=== PATIENT | female | born 1960 | race Caucasian/White ===

== ENCOUNTER → 2017-08-10 15:36 | Outpatient (CLI) | payer OTHER, SELFPAY ==
--- NOTE | 2017-08-10 15:52 | CT_ITS ---
CT head/brain wo con HISTORY: ITS.REASON: WEAKNESS RT. HAND; TINGLING ORDERING PHYSICIAN: Cedrick Almaguer PATIENT AGE: 57 years COMPARISON: None TECHNIQUE: Axial images obtained without contrast. Brain and bone windows reviewed. All CT scans at the facility use one or more dose reduction, viz: automated exposure control; ma/kV adjustment per patient size (including targeted exams where dose is matched to indication; i.e. head); or iterative reconstruction technique. FINDINGS: No midline shift, mass effect, intracranial hemorrhage, hydrocephalus, or extra-axial fluid collection is evident. The calvarium has an unremarkable appearance. No mastoid effusion. No sinus air-fluid levels.. IMPRESSION: Negative CT head without contrast. No acute finding
== END ==
PROVIDERS: PCP Internal Medicine; Visit Provider Internal Medicine
DX: R53.1 Weakness (principal); R20.2 Paresthesia of skin
CPT/HCPCS: 70450

== ENCOUNTER → 2017-10-17 12:04 | Outpatient (POV) | payer OTHER, SELFPAY | PROVIDERS: Family Provider Family Medicine; PCP Internal Medicine; Visit Provider Specialist | DX: R53.1 Weakness (principal); R20.2 Paresthesia of skin | CPT/HCPCS: 95886; 95909 ==

== ENCOUNTER → 2017-10-24 14:37 | Outpatient (CLI) | payer OTHER, SELFPAY ==
--- NOTE | 2017-10-24 14:46 | XR_ITS ---
XR shoulder RT min 2V HISTORY: ITS.REASON: PAIN ORDERING PHYSICIAN: Dyan Pennington MD PATIENT AGE: 57 years Comparison: None FINDINGS: No fracture or dislocation. No lytic or blastic change. There is normal mineralization. The joint spaces are well-preserved. No significant degenerative/arthritic changes. No erosive changes evident. IMPRESSION: Negative, no acute finding
== END ==
PROVIDERS: Family Provider Family Medicine; PCP Internal Medicine; Visit Provider Specialist
DX: S54.21XA Injury of radial nerve at forearm level, right arm, initial encounter (principal); G62.9 Polyneuropathy, unspecified; M25.511 Pain in right shoulder
CPT/HCPCS: 73030

== ENCOUNTER 2017-11-24 14:00 | Outpatient (RCR) | payer OTHER, SELFPAY | END 2017-11-24 14:01 | disposition home or self-care (01) | LOC: OT 14:00 | PROVIDERS: Family Provider Family Medicine; PCP Internal Medicine; Visit Provider Specialist | DX: S54.21XA Injury of radial nerve at forearm level, right arm, initial encounter (principal); M25.511 Pain in right shoulder; G62.9 Polyneuropathy, unspecified | CPT/HCPCS: 97110; 97140; 97166 ==

== ENCOUNTER → 2017-12-22 08:41 | Outpatient (CLI) | payer OTHER, SELFPAY ==
[2017-12-22 09:23] LABS: Basophils % 0.5 % (0.1-2.0); Eosinophils % 0.4 % (0.1-12.0); Hematocrit 54.4 % (37.0-47.0); Lymphocytes # 1.3 K/mm3 (0.7-4.5); Lymphocytes % 16.3 K/mm3 (10-50); Mean Corpuscular HGB Conc 31.3 g/dL (31.8-35.4); Mean Corpuscular Hemoglobin 30.2 pg (27.0-31.2); Mean Corpuscular Volume 96.5 fl (81-99); Monocytes # 0.3 K/mm3 (0.1-1.0); Neutrophils # 6.2 K/mm3 (1.8-7.8); Neutrophils % 78.8 % (37.0-80.0); Platelet Count 304 K/mm3 (142-424); Red Blood Count 5.64 M/mm3 (4.20-5.40); Red Cell Distribution Width 14.9 % (11.5-17.5); White Blood Count 7.9 K/mm3 (4.8-10.8)
[2017-12-22 11:10] LABS: Alanine Aminotransferase 18 U/L (12-78); Albumin Level 3.9 gm/dL (3.4-5.0); Alkaline Phosphatase 138 U/L (46-116); Anion Gap 12.5 mEq/L (5-15); Aspartate Amino Transferase 14 U/L (15-37); Bilirubin,Total 0.4 mg/dL (0.2-1.0); Blood Urea Nitrogen 6 mg/dL (7-18); Calcium 9.8 mg/dL (8.5-10.1); Carbon Dioxide 30 mmol/L (21.0-32.0); Chloride 103 mmol/L (98-107); Creatinine,Serum 0.68 mg/dL (0.55-1.02); Estimated Glomerular Filt Rate 89 ml/min (>60); GFR (African American) 107 ML/MIN (>60); Globulin 4.1 gm/dl (1.3-3.2); Glucose 147 mg/dL (74-106); Potassium 4.5 mmoL/L (3.5-5.1); Sodium 141 mmol/L (136-145); Thyroid Stimulating Hormone 0.28 uIU/ml (0.358-3.740)
[2017-12-23 10:04] LABS: Vitamin B12 475 pg/mL (232-1245)
[2017-12-23 10:05] LABS: Folate 10.5 ng/mL (>3.0)
== END ==
PROVIDERS: PCP Internal Medicine; Visit Provider Specialist
DX: S54.21XA Injury of radial nerve at forearm level, right arm, initial encounter (principal); M25.511 Pain in right shoulder; G62.9 Polyneuropathy, unspecified
CPT/HCPCS: 36415; 80053; 82607; 82746; 84443; 85025

== ENCOUNTER 2018-06-30 01:46 | Emergency (ER) | payer MEDICAID, SELFPAY ==
[2018-06-30 02:00] VITALS: BP 163/94; PULSE 71; RESP 18; TEMP 36.7; O2SAT 94; BMI 21.1
--- NOTE | 2018-06-30 02:33 | HMH.EDMCLR ---
ED Disposition Clinical Impression: Medical clearance for incarceration Disposition: Home, Self-Care Condition on Discharge: Good Instructions: General Health and Well-being (Alternative Therapy) Additional Instructions: see pcp for follow up Referrals: Provider,Referral, [Primary Care Provider] - - Critical Care Critical Care Time: No Attestation: On 06/30/18, the high probability of a clinically significant, sudden or life threatening deterioration of the following system(s) required my full and direct attention, intervention and personal management. The time I documented below is in addition to time spent performing reported procedures but includes the following listed in this critical care notation. Medical Decision Making - Medical Records Medical records reviewed: Yes: I reviewed the patient's medical records. - Kulwant Inquiry Pt receiving controlled substance: No Vital Signs: 06/30/18 02:00 Temperature 98.1 F Temperature Source Oral Pulse Rate [Right] 71 Respiratory Rate 18 Blood Pressure [Right Arm] 163/94 H Blood Pressure Mean [Right Arm] 117 Blood Pressure Source [Right Arm] Automatic Cuff Blood Pressure Position [Right Arm] Sitting 02 Sat by Pulse Oximetry 94 L Oxygen Delivery Method Room Air Medical Clearance HPI - General Chief complaint: Medical Clearance Stated complaint: Medical Clearance/Blood Draw Time Seen by Provider: 06/30/18 02:10 Mode of Arrival: Ambulatory Source of Information: Patient, Medical Record Limitations: No Limitations Description of Symptoms (Recalled from ER Triage Doc. by RN): Medical clearance - History of Present Illness HPI Narrative: no specific c/o MD complaint: medical clearance requested Onset (ago): hour(s) Reason for Medical Clearance: intoxication Place: home Alleged Intoxication: Yes Compliant with Home Medications: Yes Traumatic Symptoms: denies traumatic injury Associated Symptoms: denies other symptoms Treatments Prior to Arrival: none Home medications: Home Medications Medication Instructions Recorded Confirmed No Known Home Medications 10/24/17 10/24/17 Allergies/Adverse reactions: Allergies Allergy/AdvReac Type Severity Reaction Status Date / Time sulfamethoxazole Allergy Mild Unverified 12/26/17 15:40 [From BACTRIM] trimethoprim [From BACTRIM] Allergy Mild Unverified 12/26/17 15:40 [facility] History - Hepatitis A Screen Drug use history?: No High risk sexual behaviors?: No History of sexually transmitted infection?: No Currently employed?: No Childcare worker?: No Do you have indoor plumbing?: No Do you have electricity?: No Attestation statement:: This patient has been screened for Hepatitis A risk factors. 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 Housing: house Household Members: spouse - Psychiatric History Expresses thoughts of harming self/others: None Suicide Plan Description: No Plan Family Hx:: No significant family history ROS Obtained: Yes All systems reviewed & no additional complaints - Constitutional Constitutional: Denies fever(s) - Eyes Eyes: Denies change in vision - ENT Ears, Nose, Mouth, and Throat: Denies sore throat - Cardiovascular Cardiovascular: Denies chest pain - Respiratory Respiratory: No cough - Gastrointestinal Gastrointestingal: Denies: abdominal pain - Genitourinary Female Genitourinary: Denies hematuria - Musculoskeletal Musculoskeletal: Denies joint pain - Integumentary/Breasts Skin/Breast: Denies rash - Neurologic Neurologic: Denies abnormal g
--- NOTE | 2018-06-30 02:37 | ED_ITS ---
ED Disposition Clinical Impression: Medical clearance for incarceration Disposition: Home, Self-Care Condition on Discharge: Good Instructions: General Health and Well-being (Alternative Therapy) Additional Instructions: see pcp for follow up Referrals: Provider,Referral, [Primary Care Provider] - - Critical Care Critical Care Time: No Attestation: On 06/30/18, the high probability of a clinically significant, sudden or life threatening deterioration of the following system(s) required my full and direct attention, intervention and personal management. The time I documented below is in addition to time spent performing reported procedures but includes the following listed in this critical care notation. Medical Decision Making - Medical Records Medical records reviewed: Yes: I reviewed the patient's medical records. - Kulwant Inquiry Pt receiving controlled substance: No Vital Signs: 06/30/18 02:00 Temperature 98.1 F Temperature Source Oral Pulse Rate [Right] 71 Respiratory Rate 18 Blood Pressure [Right Arm] 163/94 H Blood Pressure Mean [Right Arm] 117 Blood Pressure Source [Right Arm] Automatic Cuff Blood Pressure Position [Right Arm] Sitting 02 Sat by Pulse Oximetry 94 L Oxygen Delivery Method Room Air Medical Clearance HPI - General Chief complaint: Medical Clearance Stated complaint: Medical Clearance/Blood Draw Time Seen by Provider: 06/30/18 02:10 Mode of Arrival: Ambulatory Source of Information: Patient, Medical Record Limitations: No Limitations Description of Symptoms (Recalled from ER Triage Doc. by RN): Medical clearance - History of Present Illness HPI Narrative: no specific c/o MD complaint: medical clearance requested Onset (ago): hour(s) Reason for Medical Clearance: intoxication Place: home Alleged Intoxication: Yes Compliant with Home Medications: Yes Traumatic Symptoms: denies traumatic injury Associated Symptoms: denies other symptoms Treatments Prior to Arrival: none Home medications: Home Medications Medication Instructions Recorded Confirmed No Known Home Medications 10/24/17 10/24/17 Allergies/Adverse reactions: Allergies Allergy/AdvReac Type Severity Reaction Status Date / Time sulfamethoxazole Allergy Mild Unverified 12/26/17 15:40 [From BACTRIM] trimethoprim [From BACTRIM] Allergy Mild Unverified 12/26/17 15:40 [facility] History - Hepatitis A Screen Drug use history?: No High risk sexual behaviors?: No History of sexually transmitted infection?: No Currently employed?: No Childcare worker?: No Do you have indoor plumbing?: No Do you have electricity?: No Attestation statement:: This patient has been screened for Hepatitis A risk factors. 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
[2018-06-30 02:44] VITALS: BP 166/88; PULSE 70; RESP 18; TEMP 36.7; O2SAT 95
== END 2018-06-30 02:45 | disposition home or self-care (01) ==
PROVIDERS: Emergency Provider Emergency Medicine
DX: F12.10 Cannabis abuse, uncomplicated (principal); F15.10 Other stimulant abuse, uncomplicated; F17.210 Nicotine dependence, cigarettes, uncomplicated
CPT/HCPCS: 99282

== ENCOUNTER → 2018-11-29 15:42 | Outpatient (POV) | payer MEDICAID, SELFPAY | DX: Z00.00 Encounter for general adult medical examination without abnormal findings (principal) ==

== ENCOUNTER → 2019-04-30 10:16 | Outpatient (CLI) | payer OTHER, SELFPAY | PROVIDERS: PCP Internal Medicine; Visit Provider Internal Medicine | DX: J20.9 Acute bronchitis, unspecified (principal); F17.209 Nicotine dependence, unspecified, with unspecified nicotine-induced disorders ==

== ENCOUNTER → 2019-05-23 11:07 | Outpatient (CLI) | payer OTHER, SELFPAY ==
--- NOTE | 2019-05-23 11:15 | XR_ITS ---
PROCEDURE: XR WRIST LT MIN 3V CLINICAL INDICATION: S/P FALL LT WRIST AND HAND PAIN Injury with pain COMPARISON: XR HAND LT MIN 3V from 05/23/2019 FINDINGS: There is a nondisplaced comminuted fracture of the distal radius with transverse and longitudinal component. Longitudinal component extends into the articular surface. There is no significant displacement or angulation. IMPRESSION: Nondisplaced comminuted fracture distal radius with intra-articular involvement Dictated by: Dwayne Victoria MD 05/23/2019 11:48 Electronically signed by Dwayne Victoria MD in [place] 05/23/2019 11:48
== END ==
PROVIDERS: PCP Internal Medicine; Visit Provider Internal Medicine
DX: M79.642 Pain in left hand (principal); M25.532 Pain in left wrist
CPT/HCPCS: 73110; 73130

== ENCOUNTER → 2019-05-30 15:30 | Outpatient (CLI) | payer OTHER, SELFPAY ==
--- NOTE | 2019-05-30 15:36 | XR_ITS ---
PROCEDURE: XR HIP LT 2-3V W/PELVIS CLINICAL INDICATION: fall, left hip pain Posttraumatic pain COMPARISON: No exams were available for comparison FINDINGS: No fracture or dislocation is evident. No significant degenerative change. No lytic or blastic change. Unremarkable soft tissues. IMPRESSION: No acute findings. Dictated by: Dwayne Victoria MD 05/30/2019 16:19 Electronically signed by Dwayne Victoria MD in [place] 05/30/2019 16:19
--- NOTE | 2019-05-30 15:36 | XR_ITS ---
PROCEDURE: XR WRIST LT MIN 3V CLINICAL INDICATION: left wrist fracture, cast applied Follow-up fracture COMPARISON: XR WRIST LT MIN 3V from 05/23/2019 FINDINGS: There is an overlying cast in place stabilizing the nondisplaced distal radial fracture which is in good alignment. IMPRESSION: No change nondisplaced distal radial fracture with cast in place Dictated by: Dwayne Victoria MD 05/30/2019 16:17 Electronically signed by Dwayne Victoria MD in [place] 05/30/2019 16:17
== END ==
PROVIDERS: PCP Internal Medicine; Visit Provider Orthopaedic Surgery
DX: M25.552 Pain in left hip (principal); S62.102A Fracture of unspecified carpal bone, left wrist, initial encounter for closed fracture
CPT/HCPCS: 73110; 73502

== ENCOUNTER → 2019-06-26 13:33 | Outpatient (CLI) | payer OTHER, SELFPAY ==
--- NOTE | 2019-06-26 13:36 | XR_ITS ---
PROCEDURE: XR WRIST LT MIN 3V CLINICAL INDICATION: cast removal Follow-up fracture COMPARISON: XR WRIST LT MIN 3V from 05/23/2019 XR WRIST LT MIN 3V from 05/30/2019 FINDINGS: Healing nondisplaced distal radial fracture is present with transverse sclerosis of the distal radius with mild dorsal angulation of the distal radius. Faint lucency persist into the articular surface of the medial aspect of the distal radius IMPRESSION: Good alignment healing distal radial fracture Dictated by: Dwayne Victoria MD 06/26/2019 17:02 Electronically signed by Dwayne Victoria MD in [place] 06/26/2019 17:02
== END ==
PROVIDERS: PCP Internal Medicine; Visit Provider Orthopaedic Surgery
DX: M25.532 Pain in left wrist (principal)
CPT/HCPCS: 73110

== ENCOUNTER 2019-06-26 14:34 | Outpatient (RCR) | payer OTHER, SELFPAY | END 2019-06-26 15:00 | disposition home or self-care (01) | LOC: PT 14:34 | PROVIDERS: Visit Provider Orthopaedic Surgery | DX: S52.572D Other intraarticular fracture of lower end of left radius, subsequent encounter for closed fracture with routine healing (principal); S79.912D Unspecified injury of left hip, subsequent encounter | CPT/HCPCS: 97760 ==

== ENCOUNTER → 2019-07-23 13:44 | Outpatient (CLI) | payer OTHER, SELFPAY ==
[2019-07-23 14:40] VITALS: PULSE 88; PULSE 90
== END ==
PROVIDERS: PCP Internal Medicine; Visit Provider Internal Medicine
DX: Z72.0 Tobacco use (principal); J20.9 Acute bronchitis, unspecified
CPT/HCPCS: 94060; 94640

== ENCOUNTER → 2019-08-07 13:20 | Outpatient (CLI) | payer OTHER, SELFPAY ==
--- NOTE | 2019-08-07 13:27 | XR_ITS ---
PROCEDURE: XR WRIST LT MIN 3V CLINICAL INDICATION: left wrist fx fu Follow-up fracture COMPARISON: XR WRIST LT MIN 3V from 05/23/2019 XR WRIST LT MIN 3V from 05/30/2019 XR WRIST LT MIN 3V from 06/26/2019 FINDINGS: There remains a faint longitudinal lucency through the distal aspect of the radius slightly 2 the ulnar side of midline consistent with residual fracture line. No other significant anomalies are evident. Transverse fracture line is not well delineated at this time. IMPRESSION: Good alignment distal radial fracture Dictated by: Dwayne Victoria MD 08/07/2019 13:41 Electronically signed by Dwayne Victoria MD in [place] 08/07/2019 13:41
== END ==
PROVIDERS: PCP Internal Medicine; Visit Provider Orthopaedic Surgery
DX: S52.502D Unspecified fracture of the lower end of left radius, subsequent encounter for closed fracture with routine healing (principal)
CPT/HCPCS: 73110

== ENCOUNTER → 2020-02-27 13:52 | Outpatient (POV) | payer OTHER, SELFPAY | DX: Z00.00 Encounter for general adult medical examination without abnormal findings (principal) ==

== ENCOUNTER 2020-04-11 14:02 | Emergency (ER) | payer MEDICARE, OTHER, SELFPAY ==
[2020-04-11 14:05] VITALS: BP 133/86; PULSE 96; RESP 18; TEMP 36.3; O2SAT 95; BMI 22.4
--- NOTE | 2020-04-11 14:13 | XR_ITS ---
PROCEDURE: XR FOOT LT MIN 3V CLINICAL INDICATION: INJURY Posttraumatic pain COMPARISON: No exams were available for comparison FINDINGS: No fracture or dislocation. No lytic or blastic change. There is normal mineralization. The joint spaces are well-preserved. No significant degenerative/arthritic changes. No erosive changes evident. Other findings:None. IMPRESSION: No acute findings. Dictated by: Dwayne Victoria MD 04/11/2020 16:06 Dwayne Victoria MD in [place] 04/11/2020 16:06
--- NOTE | 2020-04-11 14:30 | HMH.EDUTC ---
[facility] [place]: Left ankle sprain Qualifiers: Encounter type: initial encounter Involved ligament of ankle: unspecified ligament Qualified Code(s): S93.402A - Sprain of unspecified ligament of left ankle, initial encounter Disposition: Home, Self-Care Condition on Discharge: Good Instructions: DI for Ankle Sprain, DI for Foot Sprain Additional Instructions: Rest the extremity, apply ice for 15 minutes as tolerated three or four times per day, Wear the darcie wrap for compression, Elevate the extremity as tolerated while you are resting. Take ibuprofen for pain. Follow up with Dr. Conner (orthopedics). Sometimes there can be fractures that don't show up well on the first set of x-rays. So, you should follow up if you continue to have symptoms. I put in a referral but you need to call his office and schedule an appointment. Follow up with your regular doctor. GO TO THE ER FOR ANY WORSENING SYMPTOMS Referrals: Cedrick Almaguer [Primary Care Provider] - Magdy Conner MD [Staff Physician] - Time of Disposition: 15:09 Medical Decision Making - Medical Records Medical records reviewed: No: I reviewed the patient's medical records. - Kulwant Inquiry Pt receiving controlled substance: No Vital Signs: 04/11/20 14:05 04/11/20 14:45 Temperature 97.4 F L 97.4 F L Temperature Source Temporal Artery Scan Pulse Rate 96 H Pulse Rate [Right Brachial] 96 H Respiratory Rate 18 18 Blood Pressure 133/86 Blood Pressure [Right Arm] 133/86 Blood Pressure Mean [Right Arm] 101 Blood Pressure Source [Right Arm] Automatic Cuff Blood Pressure Position [Right Arm] Sitting 02 Sat by Pulse Oximetry 95 Oxygen Delivery Method Room Air - Radiology Data #2 Image(s): Foot/Toes Image Reviewed: Yes I reviewed the patient's radiology image Preliminary Findings: No Fracture Seen PROCEDURE: XR FOOT LT MIN 3V CLINICAL INDICATION: INJURY Posttraumatic pain COMPARISON: No exams were available for comparison FINDINGS: No fracture or dislocation. No lytic or blastic change. There is normal mineralization. The joint spaces are well-preserved. No significant degenerative/arthritic changes. No erosive changes evident. Other findings:None. IMPRESSION: No acute findings. Dictated by: Dwayne Victoria MD 04/11/2020 16:06 Dwayne Victoria MD in [place] 04/11/2020 16:06 [facility] [place] Stated complaint: possible L foot sprain Time Seen by Provider: 04/11/20 14:40 Mode of Arrival: Ambulatory Source of Information: Patient Limitations: No Limitations Description of Symptoms (Recalled from Triage Doc. by RN): PATIENT C/O OUTER LEFT FOOT PAIN. SHE STATES APPROX 1 WEEK AGO SHE FELL ASLEEP ON THE TOILET, AND WHEN SHE WENT TO GET UP HER LEFT FOOT HAD FALLEN ASLEEP AND IT ROLLED HEENT Symptoms (Recalled from RN notes): No Resp Symptoms (Recalled from RN notes): No Skin Symptoms (Recalled from RN notes): No MS Symptoms (Recalled from RN notes): Yes Functional Status (Recalled from RN notes): WNL - History of Present Illness Provider Complaint: She states that around 1 week ago she sit on the toilet until her left foot fell asleep. When she got up, her foot was numb so she accidentily twisted her ankle. Since then it has hurt to walk or bear weight on the foot. - Related Data Home Medications Medication Instructions Recorded Confirmed diazepam 5 mg tablet 5 mg PO QHS PRN 05/30/19 08/07/19 omeprazole 20 mg capsule,delayed 20 mg PO DAILY 05/30/19 08/07/19 release oxycodone-acetaminophen 10 mg-325 1 tab PO Q6H PRN 05/30/19 08/07/19 mg tablet Previous Rx's Medication Instructions Recorded buspirone 5 mg tablet 5 mg PO BID #60 tab 08/14/19 fluoxetine 20 mg capsule 20 mg PO DAILY #30 cap 08/14/19 Allergies Allergy/AdvReac Type Severity Reaction Status Date / Time sulfamethoxazole Allergy Mild Verified 08/07/19 13:52 [From BACTRIM] trimethoprim [From BACTRIM] Allerg
[2020-04-11 14:45] VITALS: BP 133/86; PULSE 96; RESP 18; TEMP 36.3; O2SAT 95
== END 2020-04-11 15:15 | disposition home or self-care (01) ==
PROVIDERS: Emergency Provider Nurse Practitioner Family; PCP Internal Medicine
DX: S93.402A Sprain of unspecified ligament of left ankle, initial encounter (principal); X50.1XXA Overexertion from prolonged static or awkward postures, initial encounter; Y92.012 Bathroom of single-family (private) house as the place of occurrence of the external cause; F41.8 Other specified anxiety disorders; K21.9 Gastro-esophageal reflux disease without esophagitis; Z88.2 Allergy status to sulfonamides; Z87.891 Personal history of nicotine dependence; Z79.899 Other long term (current) drug therapy
CPT/HCPCS: G0463; 73630; 99202

== ENCOUNTER → 2020-05-09 11:40 | Outpatient (CLI) | payer MEDICARE, OTHER, SELFPAY ==
--- NOTE | 2020-05-09 | XR_ITS ---
PROCEDURE: XR FOOT LT MIN 3V CLINICAL INDICATION: LT FT INJURY ON 04/03, NO BETTER Persistent pain following injury COMPARISON: CR XR ANKLE LT MIN 3V from 05/09/2020 FINDINGS: There is a faint transverse lucency at the base of the 5th metatarsal suggesting a nondisplaced fracture. This is not readily apparent on the previous exam. No ankle fracture or dislocation is evident. Other findings:None. IMPRESSION: Possible nondisplaced fracture at the base of the 5th metatarsal. This could be confirmed with MRI or CT if clinically warranted. Dictated by: Dwayne Victoria MD 05/09/2020 15:44 Dwayne Victoria MD in [place] 05/09/2020 15:44
== END ==
PROVIDERS: PCP Internal Medicine; Visit Provider Internal Medicine
DX: S99.912A Unspecified injury of left ankle, initial encounter (principal)
CPT/HCPCS: 73610; 73630

== ENCOUNTER → 2020-05-16 13:02 | Outpatient (CLI) | payer MEDICARE, OTHER, SELFPAY ==
--- NOTE | 2020-05-16 13:05 | MR_ITS ---
PROCEDURE: MR FOOT LT WO CON CLINICAL INDICATION: LEFT 5TH METATARSAL FX, pain Possible nondisplaced fracture at the base of the 5th metatarsal seen on prior left foot x-ray done 05/09/20. COMPARISON: CR XR FOOT LT MIN 3V from 05/09/2020 TECHNIQUE: Routine multiplanar multi echo sequences are performed without gadolinium enhancement. FINDINGS: Motion artifact somewhat obscures fine detail. There is subcutaneous edema along the ankle posteriorly anterior to the Achilles tendon. The Achilles tendon appears intact. There is bone marrow edema involving the proximal and mid aspect of the 5th metatarsal. Bony detail however somewhat limited secondary to the motion there does appear to be a nondisplaced fracture involving the base of the 5th metatarsal. There is some adjacent soft tissue swelling laterally at this region. The ligaments of the ankle and tendons are somewhat obscured by motion artifact. The ATFL appears torn. The PT FL and tibiofibular ligaments appear intact. No obvious tendinous abnormalities. There is a small amount of fluid along the posterior aspect of the talocalcaneal region. IMPRESSION: Nondisplaced fracture involves the base of the 5th metatarsal with bone marrow edema Also suspect tear of the ATFL Dictated by: Dwayne Victoria MD 05/21/2020 09:05 Dwayne Victoria MD in [place] 05/21/2020 09:05
== END ==
PROVIDERS: PCP Internal Medicine; Visit Provider Internal Medicine
DX: S92.355A Nondisplaced fracture of fifth metatarsal bone, left foot, initial encounter for closed fracture (principal)
CPT/HCPCS: 73718

== ENCOUNTER 2020-05-21 10:46 | Outpatient (RCR) | payer MEDICARE, OTHER, SELFPAY | END 2020-05-21 11:30 | disposition home or self-care (01) | LOC: PT 10:46 | PROVIDERS: Visit Provider Internal Medicine | DX: S92.355A Nondisplaced fracture of fifth metatarsal bone, left foot, initial encounter for closed fracture (principal) | CPT/HCPCS: 97760 ==

== ENCOUNTER 2020-06-10 14:00 | Outpatient (RCR) | payer MEDICARE, OTHER, SELFPAY ==
--- NOTE | 2020-06-04 15:17 | HMH.PTOPEV ---
PT Outpatient Evaluation Rehab PT Outpatient Evaluation Start: 06/04/20 14:03 Freq: Status: Active Protocol: Document 06/04/20 14:03 NANNETTEROCHELLE (Rec: 06/04/20 15:17 DENISE [id number]) Electronically Signed By Armond Calvert PT 06/04/20 14:03 Outpatient Therapy Subjective History Subjective History THis is the initial Physical Therapy evaluation for Isaura Mirza. Pt is a 60 y/o female referred to PT s/p L ankle sprain and 5th metatarsal fx. Pt reports sometime around the March she rolled her ankle. Pt reports she walked on it for ~ 1 week thinking it would get better . When pain did not ease up pt went to PCP and got CT scan and MRI. MRI showed small nondiplaced fx of 5th met. Pt referred to [facility]. Pt was placed in fx boot and limited activity for ~ 4 weeks . Pt now reports to PT for strengthening and return to activity. Chief Complaint Pain,Stiff,Weakness Symptom Type Ache,Sharp Symptoms Relieved By Nothing Symptoms Aggravated By Standing,Physical Activity Prior Functional Limitations None Current Functional Limitations Housework,Standing,Squatting, Recreation Activity,Walking, Stairs Symptom Description Intermittent Level of pain today (0-10) 0 Pain scale - at its best (0-10) 0 Pain scale - at its worst (0-10) 6 Ankle/Foot Eval Gait Observation General Gait Pattern Observation Antalgic Gait Palpation Tenderness left Ankle/Foot Palpation Findings Tenderness Ankle/Foot Palpation Overall Comment min TTP lateral 5th met ATF TTP negative PTF TTP negative ROM Ankle/Foot Dorsiflexion w/Knee Extended 0 Active Range Motion (degrees) Ankle/Foot Plantar Flexion Active Range 40 of Motion (degrees) Ankle/Foot Eversion Active Range of 20 Motion (degrees) Ankle/Foot Inversion Active Range of 35 Motion (degrees) MMT Ankle Dorsiflexion Strength Grade 4 Good Ankle Plantarflexion Strength Grade 4- Good- Foot Eversion Strength Grade 4 Good Foot Inversion Strength Grade 4 Good Special Tests Ankle Anterior Drawer Test Negative Left Ankle Inversion (supination) Te
== END 2020-06-10 14:05 | disposition home or self-care (01) ==
LOC: PT 14:00
PROVIDERS: PCP Internal Medicine; Visit Provider Podiatrist
DX: M79.672 Pain in left foot (principal); M25.572 Pain in left ankle and joints of left foot; S92.355A Nondisplaced fracture of fifth metatarsal bone, left foot, initial encounter for closed fracture; S93.402A Sprain of unspecified ligament of left ankle, initial encounter
CPT/HCPCS: 97110; 97163

== ENCOUNTER → 2020-07-08 14:43 | Outpatient (CLI) | payer MEDICARE, OTHER, SELFPAY ==
--- NOTE | 2020-07-08 14:48 | XR_ITS ---
PROCEDURE: XR FOOT WT BEARING LT 3V CLINICAL INDICATION: foot pain COMPARISON: CR XR FOOT LT MIN 3V from 04/11/2020 CR XR FOOT LT MIN 3V from 05/09/2020 MR MR FOOT LT WO CON from 05/16/2020 FINDINGS: Recent MRI demonstrated bone marrow edema in the 5th metatarsal with questionable fracture at the base of the 5th metatarsal. Of vague transverse lucency is noted at the base of the 5th metatarsal and may represent the nondisplaced fracture noted on the MRI. This is very subtle and only delineated on the oblique view. IMPRESSION: Nondisplaced fracture base of 5th metatarsal Dictated by: Dwayne Victoria MD 07/08/2020 16:17 Dwayne Victoria MD in [place] 07/08/2020 16:17
== END ==
PROVIDERS: PCP Internal Medicine; Visit Provider Podiatrist
DX: T14.8XXA Other injury of unspecified body region, initial encounter (principal)
CPT/HCPCS: 73630

== ENCOUNTER → 2021-08-28 15:45 | Outpatient (CLI) | payer MEDICARE, OTHER, SELFPAY ==
--- NOTE | 2021-08-28 15:56 | ECG_ITS ---
APPROVED REPORT Exam: Resting ECG HR:75 bpm ECG Measurements Heart Rate 75 AXES ME 172 P 58 QRSd 88 QRS 70 QT 382 T 24 QTc 411 Conclusion SINUS RHYTHM MINIMAL ST DEPRESSION [0.025+ mV ST DEPRESSION] BORDERLINE ECG UNCONFIRMED REPORT Electronically signed by : Iván Cadet MD 08/28/2021 17:31:31
== END ==
PROVIDERS: PCP Internal Medicine; Visit Provider Internal Medicine
DX: I10 Essential (primary) hypertension (principal); R94.31 Abnormal electrocardiogram [ECG] [EKG]
CPT/HCPCS: 93005

== ENCOUNTER → 2021-09-02 12:43 | Outpatient (CLI) | payer MEDICARE, OTHER, SELFPAY ==
[2021-09-02 14:05] LABS: Basophils # 0.1 K/mm3 (0-0.2); Eosinophils # 0.3 K/mm3 (0.0-0.4); Eosinophils % 3.3 % (0.1-12.0); Hematocrit 43.4 % (37.0-47.0); Hemoglobin 13.9 g/dL (12.2-16.2); Lymphocytes # 2.3 K/mm3 (0.7-4.5); Lymphocytes % 24.7 % (10-50); Mean Corpuscular Hemoglobin 31.4 pg (27.0-31.2); Mean Corpuscular Volume 97.9 fl (81-99); Monocytes # 0.5 K/mm3 (0.1-1.0); Monocytes % 5.8 % (1.7-9.3); Neutrophils # 6.1 K/mm3 (1.8-7.8); Neutrophils % 65.2 % (37.0-80.0); Platelet Count 272 K/mm3 (142-424); Red Blood Count 4.44 M/mm3 (4.20-5.40); White Blood Count 9.3 K/mm3 (4.8-10.8)
[2021-09-02 15:20] LABS: Chloride 100 mmol/L (98-107); Potassium 4.6 mmoL/L (3.5-5.1); Sodium 134 mmol/L (136-145)
[2021-09-02 15:23] LABS: Alanine Aminotransferase 14 U/L (12-78); Albumin Level 3.9 g/dl (3.5-5.0); Albumin/Globulin Ratio 1.4 (1.1-1.8); Alkaline Phosphatase 104 U/L (38-126); Anion Gap 8.6 mEq/L (5-15); Aspartate Amino Transferase 32 U/L (14-36); Bilirubin,Total 0.4 mg/dl (0.2-1.3); Blood Urea Nitrogen 13 mg/dl (7-17); Carbon Dioxide 30 mmol/L (22.0-30.0); Cholesterol 204 mg/dl (140-200); Estimated Glomerular Filt Rate 85 ml/min (>60); GFR (African American) 102 ML/MIN (>60); Globulin 2.8 g/dL (1.3-3.2); Total Protein,Serum 6.7 g/dl (6.3-8.2); Triglycerides 103 mg/dl (30-150); VLDL Cholesterol 21 mg/dL (0-40)
[2021-09-02 15:24] LABS: Calcium 9.3 mg/dl (8.4-10.2); Chol/HDL Ratio 4.1 (1-3.5); Glucose 84 mg/dl (74-100); HDL Cholesterol 50 mg/dl (40-60)
[2021-09-02 15:34] LABS: Direct LDL Cholesterol 115.09 mg/dL (100-129)
== END ==
PROVIDERS: PCP Internal Medicine; Visit Provider Internal Medicine
DX: F41.9 Anxiety disorder, unspecified (principal); E78.5 Hyperlipidemia, unspecified; J44.9 Chronic obstructive pulmonary disease, unspecified; M54.2 Cervicalgia
CPT/HCPCS: 80053; 80061; 85025

== ENCOUNTER 2021-10-26 17:13 | Emergency (ER) | payer MEDICARE, OTHER, SELFPAY ==
[2021-10-26 17:40] VITALS: BP 151/92; PULSE 98; RESP 18; TEMP 37.2; O2SAT 95; BMI 22.7
--- NOTE | 2021-10-26 17:50 | XR_ITS ---
PROCEDURE INFORMATION: Exam: XR Chest Exam date and time: 10/26/2021 5:51 PM Age: 61 years old Clinical indication: Cough TECHNIQUE: Imaging protocol: Radiologic exam of the chest. Views: 2 views. COMPARISON: CR CXR CHEST(2 VIEWS-NOT PORTABLE) 02/15/2016 4:14 PM FINDINGS: Lungs: Unremarkable. No consolidation. Pleural spaces: Unremarkable. No pleural effusion. No pneumothorax. Heart/Mediastinum: Unremarkable. No cardiomegaly. Bones/joints: Unremarkable. IMPRESSION: No acute findings.
--- NOTE | 2021-10-26 18:17 | HMH.EDUTC ---
[facility] [place] Clinical Impression: Sinusitis Qualifiers: Sinusitis location: unspecified location Chronicity: unspecified Qualified Code(s): J32.9 - Chronic sinusitis, unspecified Disposition: Home, Self-Care Condition on Discharge: Good Instructions: Sinusitis, DI for Sinusitis Additional Instructions: *Monitor Temp, Over the counter Motrin or Tylenol as directed/as needed Tylenol every 4 hours and Motrin every 6 hours (as long as your family doctor has told you that you can take it) for fever or pain. and straight to ER if unable to lower temp less than 101.0 after medication given *Warm salt water gargles may help to soothe the throat *Throat Lozenges *Warm fluids like tea with honey may help to soothe the throat *Sleep elevated *Humidifier/Vaporizer Follow up IMMEDIATELY for new or worsening symptoms or no Noticeable improvement over the next 48-72 hours. 911 for difficulty breathing or swallowing You were tested for today for COVID19 your test result should be back in the next 24-48 hours, you check your results on the [facility] My Health Portal Make sure to take your Vitamins Vit. C Vit D and Zinc if you can take them Prescriptions: Azithromycin [Z-Tomas 250mg Tab] 250 mg PO DIRECTED #6 tab Transmission Status: Pending to [facility] Referrals: Cedrick Almaguer MD [Primary Care Provider] - As needed Time of Disposition: 19:00 Medical Decision Making - Kulwant Inquiry Pt receiving controlled substance: No Kulwant was queried for this patient: No Vital Signs: 10/26/21 17:40 Temperature 98.9 F Temperature Source Oral Pulse Rate [Right Brachial] 98 H Respiratory Rate 18 Blood Pressure [Right Arm] 151/92 H Blood Pressure Mean [Right Arm] 111 Blood Pressure Source [Right Arm] Automatic Cuff Blood Pressure Position [Right Arm] Sitting 02 Sat by Pulse Oximetry 95 Oxygen Delivery Method Room Air Orders (Tests/Meds): ORDERS Category Date Time Status Covid-19 Nasal PCR ([facility]) Routine Lab 10/26/21 17:48 Received - Radiology Data #1 Image(s): Chest Image Reviewed: Yes I have reviewed radiologist's interpretation IMPRESSION: No acute findings. Medical Decision Narrative: Patient states that she has taken azithromycin without complications [facility] [place] - General Stated complaint: congestion, soa, cough Time Seen by Provider: 10/26/21 18:17 Mode of Arrival: Ambulatory Source of Information: Patient Limitations: No Limitations Description of Symptoms (Recalled from Triage Doc. by RN): PATIENT C/O COUGH AND SOA X 1 WEEK HEENT Symptoms (Recalled from RN notes): No Resp Symptoms (Recalled from RN notes): Yes Skin Symptoms (Recalled from RN notes): No MS Symptoms (Recalled from RN notes): No Functional Status (Recalled from RN notes): WNL - History of Present Illness Provider Complaint: Patient states that she has hx of COPD and feels like she may be having a flare States that she has been having cough, sinus congestion pressure and drainage for over a week and SOA at times after coughing episode States that her son was coming in to get checked so she came in with him - Related Data Home Medications Medication Instructions Recorded Confirmed diazepam 5 mg tablet 5 mg PO QHS PRN 05/30/19 07/08/20 omeprazole 20 mg capsule,delayed 20 mg PO DAILY 05/30/19 07/08/20 release oxycodone-acetaminophen 10 mg-325 1 tab PO Q6H PRN 05/30/19 07/08/20 mg tablet Previous Rx's Medication Instructions Recorded buspirone 5 mg tablet 5 mg PO BID #60 tab 08/14/19 fluoxetine 20 mg capsule 20 mg PO DAILY #30 cap 08/14/19 Azithromycin [Z-Tomas 250mg Tab] 250 mg PO DIRECTED #6 tab 10/26/21 Allergies Allergy/AdvReac Type Severity Reaction Status Date / Time sulfamethoxazole Allergy Mild Verified 07/08/20 15:14 [From BACTRIM] trimethoprim [From BACTRIM] Allergy Mild Verified 07/08/20 15:14 - Worker's Comp Is this a Worker's Comp case?: No [facility] History - Hepa
[2021-10-26 19:04] VITALS: BP 151/92; PULSE 98; RESP 18; TEMP 37.2; O2SAT 95
== END 2021-10-26 19:05 | disposition home or self-care (01) ==
PROVIDERS: Emergency Provider Nurse Practitioner; PCP Internal Medicine
DX: J32.9 Chronic sinusitis, unspecified (principal); J44.9 Chronic obstructive pulmonary disease, unspecified; F17.210 Nicotine dependence, cigarettes, uncomplicated; Z20.822 Contact with and (suspected) exposure to COVID-19
CPT/HCPCS: 71046; 99212; C9803; G0463; U0003; U0005

== ENCOUNTER → 2022-03-23 12:30 | Outpatient (CLI) | payer MEDICARE, OTHER, SELFPAY ==
[2022-03-23 14:57] LABS: Chloride 102 mmol/L (98-107); Sodium 138 mmol/L (136-145)
[2022-03-23 14:58] LABS: Potassium 4.7 mmoL/L (3.5-5.1)
[2022-03-23 15:00] LABS: Alanine Aminotransferase 12 U/L (12-78); Albumin/Globulin Ratio 1.3 (1.1-1.8); Alkaline Phosphatase 90 U/L (38-126); Anion Gap 9.7 mEq/L (5-15); Aspartate Amino Transferase 27 U/L (14-36); Bilirubin,Total 0.6 mg/dl (0.2-1.3); Blood Urea Nitrogen 18 mg/dl (7-17); Calcium 8.6 mg/dl (8.4-10.2); Carbon Dioxide 31 mmol/L (22.0-30.0); Cholesterol 230 mg/dl (140-200); Estimated Glomerular Filt Rate 101 ml/min (>60); GFR (African American) 122 ML/MIN (>60); Glucose 93 mg/dl (74-100); Triglycerides 142 mg/dl (30-150); VLDL Cholesterol 28 mg/dL (0-40)
[2022-03-23 15:01] LABS: Chol/HDL Ratio 4.4 (1-3.5); HDL Cholesterol 52 mg/dl (40-60)
== END ==
PROVIDERS: PCP Internal Medicine; Visit Provider Internal Medicine
DX: E78.5 Hyperlipidemia, unspecified (principal); G56.31 Lesion of radial nerve, right upper limb; M54.2 Cervicalgia; J44.9 Chronic obstructive pulmonary disease, unspecified; F41.9 Anxiety disorder, unspecified
CPT/HCPCS: 80053; 80061

== ENCOUNTER 2023-03-25 16:57 | Outpatient (CLI) | payer MEDICARE, SELFPAY ==
[2023-03-25 17:47] LABS: Basophils # 0.1 K/mm3 (0-0.2); Basophils % 1.1 % (0.1-2.0); Eosinophils # 0.3 K/mm3 (0.0-0.4); Eosinophils % 3.4 % (0.1-12.0); Hematocrit 44.3 % (37.0-47.0); Hemoglobin 14.6 g/dL (12.2-16.2); Lymphocytes # 3.4 K/mm3 (0.7-4.5); Lymphocytes % 38.4 % (10-50); Mean Corpuscular Hemoglobin 31.5 pg (27.0-31.2); Mean Corpuscular Volume 95.5 fl (81-99); Mean Platelet Volume 9.3 fl (7.4-10.4); Monocytes # 0.7 K/mm3 (0.1-1.0); Monocytes % 7.7 % (1.7-9.3); Neutrophils # 4.4 K/mm3 (1.8-7.8); Neutrophils % 49.5 % (37.0-80.0); Platelet Count 292 K/mm3 (142-424); Red Blood Count 4.64 M/mm3 (4.20-5.40); Red Cell Distribution Width 14.6 % (11.5-17.5); White Blood Count 8.9 K/mm3 (4.8-10.8)
[2023-03-25 18:15] LABS: Chloride 102 mmol/L (98-107); Sodium 139 mmol/L (136-145)
[2023-03-25 18:18] LABS: Alanine Aminotransferase 18 U/L (12-78); Albumin/Globulin Ratio 1.4 (1.1-1.8); Alkaline Phosphatase 96 U/L (38-126); Aspartate Amino Transferase 23 U/L (14-36); Bilirubin,Total 0.4 mg/dl (0.2-1.3); Blood Urea Nitrogen 16 mg/dl (7-17); Calcium 9.5 mg/dl (8.4-10.2); Carbon Dioxide 29 mmol/L (22.0-30.0); Chol/HDL Ratio 4.8 (1-3.5); Cholesterol 235 mg/dl (140-200); Estimated Glomerular Filt Rate 56 ml/min (>60); GFR (African American) 67 ML/MIN (>60); Globulin 2.9 g/dL (1.3-3.2); Glucose 82 mg/dl (74-100); HDL Cholesterol 49 mg/dl (40-60); Total Protein,Serum 6.9 g/dl (6.3-8.2); Triglycerides 119 mg/dl (30-150); VLDL Cholesterol 24 mg/dL (0-40)
[2023-03-25 18:29] LABS: Direct LDL Cholesterol 129.98 mg/dL (100-129)
== END 2023-03-25 23:59 ==
PROVIDERS: PCP Internal Medicine; Visit Provider Internal Medicine
DX: E78.5 Hyperlipidemia, unspecified (principal); J44.9 Chronic obstructive pulmonary disease, unspecified; K21.9 Gastro-esophageal reflux disease without esophagitis; G56.31 Lesion of radial nerve, right upper limb
CPT/HCPCS: 80053; 80061; 85025

== ENCOUNTER 2023-09-22 15:35 | Outpatient (CLI) | payer MEDICARE, SELFPAY ==
[2023-09-22 16:16] LABS: Alanine Aminotransferase 17 U/L (12-78); Albumin Level 4.3 g/dl (3.5-5.0); Albumin/Globulin Ratio 1.5 (1.1-1.8); Alkaline Phosphatase 106 U/L (38-126); Anion Gap 7.2 mEq/L (5-15); Aspartate Amino Transferase 25 U/L (14-36); Bilirubin,Total 0.5 mg/dl (0.2-1.3); Blood Urea Nitrogen 14 mg/dl (7-17); Calcium 9.7 mg/dl (8.4-10.2); Carbon Dioxide 30 mmol/L (22.0-30.0); Chloride 105 mmol/L (98-107); Chol/HDL Ratio 1.9 (1-3.5); Cholesterol 167 mg/dl (140-200); Estimated Glomerular Filt Rate 124 ml/min (>60); GFR (African American) 150 ML/MIN (>60); Globulin 2.9 g/dL (1.3-3.2); Glucose 87 mg/dl (74-100); HDL Cholesterol 87 mg/dl (40-60); Potassium 4.2 mmoL/L (3.5-5.1); Sodium 138 mmol/L (136-145); Total Protein,Serum 7.2 g/dl (6.3-8.2); Triglycerides 49 mg/dl (30-150); VLDL Cholesterol 10 mg/dL (0-40)
[2023-09-22 16:26] LABS: Direct LDL Cholesterol 61.82 mg/dL (100-129)
== END 2023-09-22 23:59 | disposition home or self-care (01) ==
LOC: LAB.DROPOF 15:36
PROVIDERS: PCP Internal Medicine; Visit Provider Internal Medicine
DX: E78.5 Hyperlipidemia, unspecified (principal); J44.1 Chronic obstructive pulmonary disease with (acute) exacerbation
CPT/HCPCS: 80053; 80061

== ENCOUNTER 2023-11-19 14:39 | Emergency (ER) | payer MEDICARE, SELFPAY ==
[2023-11-19] VITALS (11 sets, daily range): BP systolic 93–140; BP diastolic 60–96; PULSE 66–91; RESP 18–21; TEMP 36.8–36.9; O2SAT 77–100; BMI 19.7
--- NOTE | 2023-11-19 15:19 | CT_ITS ---
PROCEDURE INFORMATION: Exam: CT Abdomen And Pelvis With Contrast Exam date and time: 11/19/2023 5:01 PM Age: 63 years old Clinical indication: Abdominal pain; Additional info: Ruq pain/tenderness, positive padilla sign TECHNIQUE: Imaging protocol: Computed tomography of the abdomen and pelvis with contrast. Radiation optimization: All CT scans at this facility use at least one of these dose optimization techniques: automated exposure control; mA and/or kV adjustment per patient size (includes targeted exams where dose is matched to clinical indication); or iterative reconstruction. Contrast material: ISOVUE; Contrast volume: 70 ml; Contrast route: IV; COMPARISON: CR XR HIP LT 2-3V W/PELVIS 05/30/2019 3:44 PM FINDINGS: Lungs: No consolidation, lung nodules, or pleural effusions. Liver: Intensely enhancing 1.7 cm nodule in segment 7 of the liver during portal venous phase. Gallbladder and biliary ducts: Common bile duct measures 9-12 mm and terminates fairly abruptly at the ampulla, but no calcified choledocholithiasis. Mild intrahepatic ductal dilatation. No calcified gallstones, wall thickening, abnormal distension, or pericholecystic fluid. Pancreas: No masses. No ductal dilation. Spleen: No splenomegaly. No masses or surrounding fluid. Adrenal glands: No mass. Kidneys and ureters: Nonenhancing low-density cysts are present in both kidneys, the largest in the right upper pole measuring 3 cm. Stomach and bowel: 5 cm diverticulum in the 3rd portion of the duodenum. No intestinal masses, bowel wall thickening, or abnormal luminal dilatation. Appendix: No evidence of appendicitis. Intraperitoneal space: No free air. No masses or significant fluid collection. Vasculature: 4 cm infrarenal abdominal aortic aneurysm extends for a length 6.5 cm and has a lumen diameter 1.5-2 cm. No intimal dissection. Ill-defined 4.5-5.5 cm mass with heterogeneous, patchy, peripheral contrast enhancement in segment 5 causes hyperdense enhancement of the posterior hepatic vein indicating venous shunting. Lymph nodes: No enlarged lymph nodes. Urinary bladder: No masses or asymmetric wall thickening. Reproductive: Anteverted uterus is appropriate in size and shape and has no myometrial masses. Bones/joints: No acute fracture or bone lesions. Soft tissues: No masses or other abnormalities. IMPRESSION: 1. Abnormal intrahepatic and extrahepatic biliary ductal dilatation may have abrupt distal narrowing. No calcified gallstones. No pancreas mass or ductal dilatation. Right upper quadrant ultrasound and/or MRCP are suggested. 2. Large duodenal diverticulum in the 3rd portion of the duodenum near the ampulla of Vater. 3. Infrarenal abdominal aortic aneurysm measures 4 cm. No intimal dissection. 4. Enhancing liver masses are nonspecific but likely represent hemangiomas. MRI of the abdomen without and with contrast is suggested. COMMENTS: Consistent with the [employer]'s Incidental Findings Committee white paper (J Am Mia Radiol 2018): Any incidental renal lesion less than 1 cm or classified as too small to characterize, or any incidental cystic renal lesion characterized as simple-appearing, is likely benign. No follow-up imaging is recommended for these lesions per consensus recommendations based on imaging criteria.
[2023-11-19 15:22] LABS: Basophils # 0.1 K/mm3 (0-0.2); Basophils % 0.5 % (0.1-2.0); Eosinophils # 0.4 K/mm3 (0.0-0.4); Eosinophils % 3.1 % (0.1-12.0); Hematocrit 42.2 % (37.0-47.0); Lymphocytes # 1.6 K/mm3 (0.7-4.5); Lymphocytes % 12.3 % (10-50); Mean Corpuscular HGB Conc 30.9 g/dL (31.8-35.4); Mean Corpuscular Hemoglobin 31.2 pg (27.0-31.2); Mean Platelet Volume 8.8 fl (7.4-10.4); Monocytes # 0.7 K/mm3 (0.1-1.0); Monocytes % 5.5 % (1.7-9.3); Neutrophils % 78.6 % (37.0-80.0); Platelet Count 230 K/mm3 (142-424); Red Blood Count 4.18 M/mm3 (4.20-5.40); Red Cell Distribution Width 14.5 % (11.5-17.5); White Blood Count 12.7 K/mm3 (4.8-10.8)
--- NOTE | 2023-11-19 15:30 | PC.NURSE ---
PT DIFFICULT IV START, ATTEMPT X 4. BLOOD COLLECT. DR STYLES NOTIFIED AND WILL PLACE US GUIDED IV
--- NOTE | 2023-11-19 15:30 | HMH.EDGENADL ---
Discharge Plan Disposition Patient Disposition: Xfer Short-Term Hosp Prescriptions Prescriptions: No Action citalopram 40 mg tablet 40 mg PO DAILY amoxicillin 500 mg capsule 1,000 mg PO BID Qty: 40 0RF prednisone 10 mg tablet 10 mg PO DIRECTED Qty: 32 0RF Rx Instructions: see taper instructions: 4 tabs po qam x 5 days; 3 tabs po qam x 2 days; 2 tabs po qam x 2 days; 1 tab po qam x 2 days; then stop albuterol sulfate 90 mcg/actuation HFA aerosol inhaler 2 puff inhalation Q6H PRN (Reason: shortness of breath or wheezing) Qty: 8.5 5RF omeprazole 20 mg capsule,delayed release(DR/EC) 20 mg PO DAILY atorvastatin 40 mg tablet 40 mg PO HS Qty: 90 1RF oxycodone-acetaminophen [Percocet] 10-325 mg tablet 1 tab PO Q6H PRN (Reason: pain) Qty: 120 0RF diazepam 5 mg tablet 5 mg PO BID PRN (Reason: anxiety) Qty: 60 1RF Referrals Follow up/Referrals: Cedrick Almaguer MD [Primary Care Provider] - See instructions Clinical Impressions Clinical Impression: Abdominal pain, RUQ, Cholangitis, Acute hypoxemic respiratory failure, Sleep apnea in adult, Lethargic, Hyperkalemia Stand Alone Forms Stand Alone Forms: Transfer Record - ED Print Language Print Language: Ghanaian Discharge ED Provider: Shayla Harvey General Adult HPI General Chief complaint: Abdominal Pain Stated complaint: pain in right ribcage and back Time Seen by Provider: 11/19/23 14:57 Mode of Arrival: Wheelchair Source of Information: Patient Limitations: No Limitations Description of Symptoms (Recalled from ER Triage Doc. by RN): Patient complaint of right sided abdomen pain that wraps around to her back. Denies any urinary symptoms or nausea. States it hurts to walk or take deep breaths. History of Present Illness HPI narrative: This patient is a 63-year-old female with a history of hyperlipidemia and COPD presenting to the emergency department for evaluation with concern for right upper abdominal pain radiating to her back. She states that it goes all the way from her umbilicus to her right flank. She also notes poor appetite, unintentional weight loss, nausea, and chills. She denies any true fever, chest pain or shortness of breath, vomiting, changes bowel movements, or urinary symptoms. She has no prior history of abdominal surgeries. Related Data Home Medications ?Medication ?Instructions ?Recorded ?Confirmed omeprazole 20 mg capsule,delayed 20 mg PO DAILY 05/30/19 09/22/23 release citalopram 40 mg tablet 40 mg PO DAILY 09/22/23 09/22/23 Previous Rx's ?Medication ?Instructions ?Recorded albuterol sulfate 90 mcg/actuation 2 puff inhalation Q6H PRN 09/22/23 aerosol inhaler shortness of breath or wheezing #8.5 grams amoxicillin 500 mg capsule 1,000 mg (2 x 500 mg) PO BID #40 09/22/23 caps prednisone 10 mg tablet 10 mg PO DIRECTED #32 tabs 09/22/23 atorvastatin 40 mg tablet 40 mg PO HS #90 tabs 10/17/23 diazepam 5 mg tablet 5 mg PO BID PRN anxiety #60 tabs 10/21/23 oxycodone-acetaminophen 10 mg-325 1 tab PO Q6H PRN pain #120 tabs 10/21/23 mg tablet (Percocet) Allergies Allergy/AdvReac Type Severity Reaction Status Date / Time sulfamethoxazole Allergy Mild Verified 09/22/23 13:23 [From BACTRIM] trimethoprim [From BACTRIM] Allergy Mild Verified 09/22/23 13:23 terbinafine Allergy Redness of Verified 09/22/23 13:23 Skin PFSH PFS Disclaimer: The information contained in this section may have been updated after the patient was seen, as this information can be updated by other users. Social History Smoking Status: Never smoker alcohol intake: never counseling provided: none substance use type: marijuana current occupational status: other Travel in the last 8 weeks: None household members: spouse housing: house number of children: 1 ROS Obtained: Yes All systems reviewed & no additional complaints except as documented Physical Exam General General appearance: alert and in no apparent distress Head Head exam: atraumatic and normocephalic Eye Eye exam: Present normal appearance, PERRL and EOMI ENT ENT exam: Present normal exam, normal oropharynx, mucous membranes moist and normal external ear exam Neck Neck exam: Present normal inspection, full ROM and trachea midline; Absent tenderness Chest Chest inspection: Present normal inspection and symmetric chest wall rise; Absent tenderness Respiratory Respiratory exam: Present normal lung sounds bilaterally; Absent respiratory distress, wheezes, stridor or accessory muscle use Cardiovascular Cardiovascular exam: Present regular rate and normal rhythm Abdominal Exam Abdominal exam: Present soft, tenderness (RUQ), guarding (RUQ), normal bowel sounds and Buitrago's sign; Absent distention, rebound or rigidity Extremities Exam Extremities exam: Present normal inspection, full ROM and normal capillary refill; Absent tenderness or edema Back Exam Back exam: Present normal inspection and full ROM; Absent tenderness Neurological Exam Neurological exam: Present alert, oriented X3, CN II-XII intact and normal gait; Absent motor sensory deficit Psychiatric Psychiatric exam: Present normal affect and normal mood Skin Skin exam: Present warm and dry Medical Decision Making Medical Records Medical records reviewed: Yes I reviewed the patient's medical records. Kulwant Inquiry Pt receiving controlled substance: No Vital Signs: 11/19/23 14:40 11/19/23 17:30 11/19/23 18:24 Temperature 98.4 F Temperature Source Oral Pulse Rate 90 Pulse Rate [Radial] 91 H Respiratory Rate 18 Blood Pressure Blood Pressure [Right Arm] 140/96 H Blood Pressure Mean [Right Arm] 110 Blood Pressure Source [Right Arm] Automatic Cuff Blood Pressure Position [Right Arm] Sitting 02 Sat by Pulse Oximetry 90 L 77 L Oxygen Delivery Method Room Air Venturi Mask 11/19/23 19:30 11/19/23 19:45 11/19/23 20:00 Temperature Temperature Source Pulse Rate 75 78 76 Pulse Rate [Radial] Respiratory Rate Blood Pressure 108/67 L 116/77 Blood Pressure [Right Arm] Blood Pressure Mean [Right Arm] Blood Pressure Source [Right Arm] Blood Pressure Position [Right Arm] 02 Sat by Pulse Oximetry 96 98 98 Oxygen Delivery Method Venturi Mask 11/19/23 20:30 11/19/23 21:00 Temperature Temperature Source Pulse Rate 76 67 Pulse Rate [Radial] Respiratory Rate Blood Pressure 97/61 L 93/60 L Blood Pressure [Right Arm] Blood Pressure Mean [Right Arm] Blood Pressure Source [Right Arm] Blood Pressure Position [Right Arm] 02 Sat by Pulse Oximetry 100 95 Oxygen Delivery Method Lab Data Lab results reviewed: Yes I reviewed the patient's lab results. Lab Results 11/19/23 15:12: Sodium 131 L, Potassium 5.5 H, Chloride 99, Carbon Dioxide 31 H, Anion Gap 6.5, BUN 14, Creatinine 0.70, Estimated Creat Clear 51, Estimated GFR 84, Est GFR ( Amer) 102, Glucose 91, Lactate 0.8, Calcium 8.9, Total Bilirubin 1.8 H, AST 57 H, ALT 25, Alkaline Phosphatase 73, Total Protein 7.9, Albumin 4.2, Globulin 3.7 H, Albumin/Globulin Ratio 1.1, Lipase 51, Plasma/Serum Alcohol < 10 11/19/23 15:13: WBC 12.7 H, RBC 4.18 L, Hgb 13.0, Hct 42.2, MCV 101.0 H, MCH 31.2, MCHC 30.9 L, RDW 14.5, Plt Count 230, MPV 8.8, Neut % (Auto) 78.6, Lymph % (Auto) 12.3, [place] % (Auto) 5.5, Eos % (Auto) 3.1, Baso % (Auto) 0.5, Neut # (Auto) 10.0 H, Lymph # (Auto) 1.6, [place] # (Auto) 0.7, Eos # (Auto) 0.4, Baso # (Auto) 0.1 11/19/23 16:40: VBG pH 7.38, VBG pCO2 49.9, VBG pO2 75.4 H, VBG HCO3 28.8, VBG Total CO2 30.3 H, VBG O2 Saturation 95.6 H, VBG Base Excess 3.6 H, VBG Lactic Acid 1.3 11/19/23 15:13 11/19/23 15:12 Orders (Tests/Meds): ED MEDICATIONS Discontinued Medications Generic Name Dose Route Start Last Admin Trade Name Phyllis PRN Reason Stop Dose Admin Acetaminophen 1,000 mg 11/19/23 15:19 11/19/23 16:23 Acetaminophen 1,000mg/100ml Vial IV 11/19/23 15:20 1,000 mg ONCE ONE Administration Albuterol/Ipratropium 3 ml 11/19/23 16:40 11/19/23 17:12 Ipratropium/Albuterol 3 Ml Neb IH 11/19/23 16:41 3 ml ONCE ONE Administration Lactated Ringer's 1,000 mls @ 999 mls/hr 11/19/23 15:19 11/19/23 16:23 Lactated Ringer's 1000 Ml Bag IV 11/19/23 16:19 999 mls/hr .Q1H1M ONE Administration Piperacillin Sod/Tazobactam 50 mls @ 100 mls/hr 11/19/23 18:52 11/19/23 19:34 Sod 3.375 gm/ Sodium Chloride IV 11/19/23 19:21 100 mls/hr ONCE ONE Administration Lactated Ringer's 1,000 mls @ 999 mls/hr 11/19/23 18:51 11/19/23 19:33 Lactated Ringer's 1000 Ml Bag IV 11/19/23 19:51 999 mls/hr .Q1H1M ONE Administration Iopamidol 70 ml 11/19/23 16:58 11/19/23 16:59 Iopamidol-370 (76%);100ml Bottle IV 11/19/23 16:59 70 ml ONCE ONE Administration Ketorolac Tromethamine 15 mg 11/19/23 15:19 11/19/23 16:23 Ketorolac 30mg/Ml Vial IV 11/19/23 15:20 15 mg ONCE ONE Administration Ondansetron HCl 4 mg 11/19/23 15:19 11/19/23 16:23 Ondansetron 4mg/2ml Vial IV 11/19/23 15:20 4 mg ONCE ONE Administration Sodium Chloride 10 ml 11/19/23 16:58 11/19/23 16:59 Sodium Chloride 0.9% 10ml Syr (Rad Only) IV 11/19/23 16:59 10 ml ONCE ONE Administration Sodium Chloride 50 ml 11/19/23 16:58 11/19/23 16:59 0.9 % Sodium Chloride 50 Ml Vial IV 11/19/23 16:59 50 ml ONCE ONE Administration ORDERS Category Date Time Status CT abdomen pelvis w con Stat Cat Scan 11/19/23 15:19 Completed CTA Chest [CT angio chest PE protocol] Stat Cat Scan 11/19/23 16:39 Completed CBC w/Auto Diff [Complete Blood Count Auto Diff] Stat Lab 11/19/23 15:13 Completed CMP [Comprehensive Metabolic Panel] Stat Lab 11/19/23 15:12 Completed Ethyl Alcohol Stat Lab 11/19/23 15:12 Completed Lactic Acid Stat Lab 11/19/23 15:12 Completed Lipase Stat Lab 11/19/23 15:12 Completed UA [Urinalysis and Microscopic] Stat Lab 11/19/23 15:13 Ordered UDS [Drug Screen,Urine] Stat Lab 11/19/23 17:16 Ordered Blood Culture Stat Micro 11/19/23 19:05 Received VBG [Venous Blood Gas] Stat RT 11/19/23 16:40 Completed ECG Data Tracing #1: I reviewed this ECG and interpreted as documented below: Normal sinus rhythm with a ventricular rate of [address] changes concerning for ischemia. Normal axis and intervals ECG initial impression date: 11/19/23 ECG initial impression time: 15:36 Medical Decision Narrative: In summary, this patient is a 63-year-old female presenting to the Emergency Department for evaluation of right-sided abdominal pain and nausea. Differential diagnoses considered include but are not limited to cholecystitis, cholangitis, cholelithiasis, pancreatitis, pyelonephritis, ureterolithiasis, constipation, appendicitis. Ruling out the most morbid conditions drove assessment. It should be noted patient's history includes COPD and hyperlipidemia which may or may not be at goal therapy. This complicates all aspects of care by increasing patient's risk for morbidity. On exam, the patient is lying in bed in no acute distress with reassuring vital signs on cardiac telemetry. She does, however, have right-sided abdominal tenderness with positive Buitrago sign and guarding in the right upper quadrant. Workup included CBC, CMP, lipase, lactic acid, urinalysis, EKG, and CT abdomen and pelvis with IV contrast. She was given a bolus of IV fluids as well as IV Toradol, acetaminophen, and Zofran for symptomatic improvement. On reassessment, the patient kept desaturating to the 70s and 80s with a low of 75% on room air when she falls asleep. She does not usually wear oxygen, CPAP, or any other form of supplementary oxygen at home. She would recover once he wake up, but she is very slow to respond and becoming slightly more somnolent. I did add on a CT PE protocol. Radiology is concern for AAA, biliary ductal dilatation, renal cysts, and liver lesions, likely hemangiomas. She also has emphysematous lung changes. She has biliary ductal dilatation, leukocytosis, hyperbilirubinemia at 1.8, and mildly elevated AST. She also continually has soft pressure with MAP right around 65 and systolic in the 90s. Given this in combination with her abdominal pain and symptoms as well as her chills that she is been having, concern for possible cholangitis. Given this, she was started on IV Zosyn and given a second liter bolus of IV fluids. Blood cultures were sent and are pending. Ultimately, I feel the patient would benefit from transfer to higher level of care with gastroenterology for further evaluation and management. Mirela gould, Trina Aguilera, and Del who I contacted at the family's request all said no. I had an interactive discussion with Dr. Chan at who accepted the patient for transfer. I advised I would recommend EMS transfer given that the patient keeps desaturating, however she wants to go POV. I advised her that I do not feel that this is safe given her low oxygen and the fact that she has been falling asleep frequently here, but she advises concerned that she would be self paying for EMS transport. I told her that I do not have any control over the billing unfortunately or know exactly how she would be billed or what she would be billed, but I did advise that EMS transport would be the safest option to ensure that she does not decompensate and have issues such as respiratory failure or cardiac . I also advised the importance of going to if she does potentially have cholangitis, as she is high risk for sepsis and clinical decompensation. She was then agreeable to EMS transport. Transport was arranged, and she was taken in stable condition. Critical Care Critical Care Time Critical Care Time: No
--- NOTE | 2023-11-19 15:35 | ECG_ITS ---
APPROVED REPORT Exam: Resting ECG HR:82 bpm ECG Measurements Heart Rate 82 AXES WV 167 P 69 QRSd 79 QRS 54 QT 363 T 63 QTc 401 Conclusion SINUS RHYTHM NORMAL ECG UNCONFIRMED REPORT Electronically signed by : Pawan Parson, 11/21/2023 14:44:41
[2023-11-19 15:39] LABS: Albumin Level 4.2 g/dl (3.5-5.0); Chloride 99 mmol/L (98-107); Sodium 131 mmol/L (136-145)
[2023-11-19 15:40] LABS: Potassium 5.5 mmoL/L (3.5-5.1)
[2023-11-19 15:42] LABS: Alanine Aminotransferase 25 U/L (12-78); Albumin/Globulin Ratio 1.1 (1.1-1.8); Alkaline Phosphatase 73 U/L (38-126); Anion Gap 6.5 mEq/L (5-15); Aspartate Amino Transferase 57 U/L (14-36); Bilirubin,Total 1.8 mg/dl (0.2-1.3); Blood Urea Nitrogen 14 mg/dl (7-17); Calcium 8.9 mg/dl (8.4-10.2); Carbon Dioxide 31 mmol/L (22.0-30.0); Creatinine Clearance Estimated 51 mL/min (50-200); Estimated Glomerular Filt Rate 84 ml/min (>60); GFR (African American) 102 ML/MIN (>60); Globulin 3.7 g/dL (1.3-3.2); Glucose 91 mg/dl (74-100); Lipase 51 U/L (23-300); Total Protein,Serum 7.9 g/dl (6.3-8.2)
[2023-11-19 15:43] LABS: Lactic Acid 0.8 mmol/L (0.7-2.1)
--- NOTE | 2023-11-19 16:00 | PC.NURSE ---
IV PLACED DR STYLES, US GUIDED
[2023-11-19] MEDS: ACETAMINOPHEN 1,000MG/100ML VIAL 1000 MG IV (16:23)
[2023-11-19] MEDS: ONDANSETRON 4MG/2ML VIAL 4 MG IV (16:23)
[2023-11-19] MEDS: KETOROLAC 30MG/ML VIAL 15 MG IV (16:23)
[2023-11-19] MEDS: LACTATED RINGERS 1000ML 1,000 ML 999 ML IV ×2 (16:23→19:33)
--- NOTE | 2023-11-19 16:39 | CT_ITS ---
PROCEDURE INFORMATION: Exam: CTA Chest With Contrast Exam date and time: 11/19/2023 5:01 PM Age: 63 years old Clinical indication: Condition or disease; Lung condition and disease; Hypoxia TECHNIQUE: Imaging protocol: Computed tomographic angiography of the chest with contrast. Exam focused on the arteries. 3D rendering (Not supervised by radiologist): MIP and/or 3D reconstructed images were created by the technologist. Radiation optimization: All CT scans at this facility use at least one of these dose optimization techniques: automated exposure control; mA and/or kV adjustment per patient size (includes targeted exams where dose is matched to clinical indication); or iterative reconstruction. Contrast material: ISOVUE 370; Contrast volume: 70 ml; Contrast route: INTRAVENOUS (IV); COMPARISON: CR XR CHEST 2V 10/26/2021 5:51 PM FINDINGS: Pulmonary arteries: No pulmonary emboli. Aorta: No aortic aneurysm. No aortic dissection. Lungs: Interstitial thickening and mild centrilobular emphysema throughout both lungs. No airspace consolidation or nodules. Dependent atelectasis. Pleural spaces: No pneumothorax. No pleural effusion. Heart: No cardiomegaly. No pericardial effusion. Coronary arteries: Small number of coronary artery calcifications. Lymph nodes: No enlarged lymph nodes. Bones/joints: No acute fracture. Soft tissues: No soft tissue masses. IMPRESSION: 1. No pulmonary emboli. No aortic aneurysm or intimal dissection. 2. Dependent atelectasis. No other acute findings in the chest. 3. Centrilobular emphysema. COMMENTS: The presence of pulmonary emphysema on CT is an independent risk factor for lung cancer. In the absence of a history or active diagnosis of lung cancer, it is recommended that this patient with emphysema be evaluated for enrollment in a low dose CT lung cancer screening program.
[2023-11-19 16:53] LABS: Lactate Venous 1.3 mmol/L (0.4-2.0); VBG Base Excess 3.6 mmol/L (-2.4-2.3); VBG HCO3 28.8 mmol/L (23-30); VBG Oxygen Saturation 95.6 % (50-70); VBG PCO2 49.9 mmol/L (35-51); VBG PH 7.38 mmol/L (7.31-7.41); VBG PO2 75.4 mmol/L (28-40); VBG Total CO2 30.3 mmol/L (23-27)
[2023-11-19] MEDS: 0.9 % SODIUM CHLORIDE 50 ML VIAL IV (16:59)
[2023-11-19] MEDS: IOPAMIDOL-370 (76%);100ML BOTTLE 70 ML IV (16:59)
[2023-11-19] MEDS: SODIUM CHLORIDE 0.9% 10ML SYR (RAD ONLY) 10 ML IV (16:59)
--- NOTE | 2023-11-19 17:00 | PC.NURSE ---
PT TO CT
--- NOTE | 2023-11-19 17:05 | PC.NURSE ---
PT RETURNED FROM CT
[2023-11-19] MEDS: IPRATROPIUM/ALBUTEROL 3 ML NEB IH (17:12)
--- NOTE | 2023-11-19 18:23 | PC.NURSE ---
DR STYLES AT BEDSIDE TO UPDATE PT
--- NOTE | 2023-11-19 19:09 | PC.NURSE ---
Called [facility] about possible transfer to [place] for GI. Awaiting callback. CR
--- NOTE | 2023-11-19 19:28 | PC.NURSE ---
confirmed blood cultures were drawn
[2023-11-19 19:34] LABS: Ethyl Alcohol < 10 mg/dl (0-10)
[2023-11-19] MEDS: PIPERACILLIN/TAZO 3.375 GM in 0.9 % SODIUM CHLORIDE 50 ML IV (19:34)
--- NOTE | 2023-11-19 19:50 | PC.NURSE ---
Spo2 noted to be declining, 79% noted on the monitor with good pleth at this time. Respiratory and this RN to bedside at this time, patient currently on 35% fio2 via venti mask, patient sleeping, patient arose easily, spo2 steadily increased while awake. Respiratory adjusted fio2 to 40% at this time. Notified provider Dr. Harvey.
--- NOTE | 2023-11-19 20:20 | PC.NURSE ---
received call back from [employer]
--- NOTE | 2023-11-19 21:17 | PC.NURSE ---
Contacted [facility] in regards to transfer of this patient.
== END 2023-11-19 22:30 | disposition short-term general hospital (02) ==
PROVIDERS: Emergency Provider Emergency Medicine; PCP Internal Medicine
DX: J96.01 Acute respiratory failure with hypoxia (principal); K83.09 Other cholangitis; R10.11 Right upper quadrant pain; E87.5 Hyperkalemia; R53.83 Other fatigue
CPT/HCPCS: 71275; 74177; 80053; 80320; 82803; 83605; 83690; 85025; 87040; 93005; 96361; 96365; 96375; 99285; G0480; J0131; J1885; J2405; J2543; J7120; J7620; Q9967

== ENCOUNTER 2023-11-24 14:20 | Outpatient (CLI) | payer MEDICARE, SELFPAY ==
[2023-11-24 17:41] LABS: Basophils # 0.1 K/mm3 (0-0.2); Basophils % 0.6 % (0.1-2.0); Eosinophils # 0.1 K/mm3 (0.0-0.4); Eosinophils % 1.2 % (0.1-12.0); Hematocrit 42.7 % (37.0-47.0); Hemoglobin 13.4 g/dL (12.2-16.2); Lymphocytes # 1.7 K/mm3 (0.7-4.5); Lymphocytes % 19.9 % (10-50); Mean Corpuscular HGB Conc 31.5 g/dL (31.8-35.4); Mean Corpuscular Hemoglobin 31.3 pg (27.0-31.2); Mean Corpuscular Volume 99.3 fl (81-99); Mean Platelet Volume 8.9 fl (7.4-10.4); Monocytes # 0.7 K/mm3 (0.1-1.0); Monocytes % 8.1 % (1.7-9.3); Neutrophils # 6.2 K/mm3 (1.8-7.8); Neutrophils % 70.2 % (37.0-80.0); Platelet Count 423 K/mm3 (142-424); Red Cell Distribution Width 14.4 % (11.5-17.5); White Blood Count 8.8 K/mm3 (4.8-10.8)
[2023-11-24 19:06] LABS: Alanine Aminotransferase 19 U/L (12-78); Albumin Level 3.3 g/dl (3.5-5.0); Albumin/Globulin Ratio 1.1 (1.1-1.8); Alkaline Phosphatase 112 U/L (38-126); Amylase 45 U/L (30-110); Anion Gap 10.2 mEq/L (5-15); Aspartate Amino Transferase 25 U/L (14-36); Bilirubin,Total 0.5 mg/dl (0.2-1.3); Blood Urea Nitrogen 10 mg/dl (7-17); Calcium 9.1 mg/dl (8.4-10.2); Carbon Dioxide 29 mmol/L (22.0-30.0); Chloride 102 mmol/L (98-107); Estimated Glomerular Filt Rate 100 ml/min (>60); GFR (African American) 121 ML/MIN (>60); Glucose 99 mg/dl (74-100); Potassium 4.2 mmoL/L (3.5-5.1); Sodium 137 mmol/L (136-145); Total Protein,Serum 6.3 g/dl (6.3-8.2)
== END 2023-11-24 23:59 | disposition home or self-care (01) ==
LOC: LAB.DROPOF 11-25 12:50
PROVIDERS: PCP Internal Medicine; Visit Provider Internal Medicine
DX: K80.50 Calculus of bile duct without cholangitis or cholecystitis without obstruction (principal); R10.11 Right upper quadrant pain
CPT/HCPCS: 80053; 82150; 85025

== ENCOUNTER 2023-11-25 13:57 | Outpatient (CLI) | payer MEDICARE, SELFPAY ==
--- NOTE | 2023-11-25 14:14 | MR_ITS ---
FINAL REPORT CLINICAL HISTORY: Right upper quadrant pain ,common duct stone FINDINGS: Multiplanar MR imaging of the abdomen was performed without contrast. MRCP images were performed. 3D reconstructed images were obtained and reviewed. Motion artifact on many of the images decreases the sensitivity. There is a 13 mm mass in the posterior liver dome which can not be accurately characterized without contrast, likely represents a cyst or hemangioma. There is moderate biliary ductal dilatation. The common duct measures up to 13 mm. No filling defect is identified to suggest bile duct stone. There is no evidence of stricture. There is mild pancreatic ductal dilatation measuring up to 4 mm. No definite pancreatic mass is identified but a mass or stricture at the level of the ampulla is not excluded. There is a 3.8 cm abdominal aortic aneurysm with mural thrombus. The gallbladder has an unremarkable appearance. There is a 27 mm probable cyst in the upper pole of the right kidney. Small left renal cysts are identified. IMPRESSION: Motion artifact decreases the sensitivity. Moderate biliary and mild pancreatic ductal dilatation without evidence of stones. Small mass or stricture at the level of the ampulla is not excluded. Hepatic and renal cysts. Abdominal aortic aneurysm with mural thrombus. Reviewed, Interpreted and Dictated by Lul Hernandez III, MD Transcribed by Amita Reece Authenticated and [facility]
== END 2023-11-25 23:59 | disposition home or self-care (01) ==
LOC: RAD 13:58
PROVIDERS: PCP Internal Medicine; Visit Provider Internal Medicine
DX: K80.50 Calculus of bile duct without cholangitis or cholecystitis without obstruction (principal); R10.11 Right upper quadrant pain; M54.50 Low back pain, unspecified
CPT/HCPCS: 74181; 76376

== ENCOUNTER 2023-12-01 11:19 | Day surgery (SDC) | payer MEDICARE, SELFPAY ==
[2023-11-30 14:45] VITALS: BMI 19.5
[2023-12-01] VITALS (9 sets, daily range): BP systolic 133–161; BP diastolic 61–100; PULSE 62–103; RESP 12–18; TEMP 36.4–36.6; O2SAT 94–100
--- NOTE | 2023-12-01 11:44 | EXP.ANES.CKL ---
[facility] Disclaimer: The information contained in this section may have been updated after the patient was seen, as this information can be updated by other users. Medical History History of MRSA infection HTN (hypertension) COPD (chronic obstructive pulmonary disease) Surgical History No history of previous surgery Family History Other Family history of cancer Family history of diabetes mellitus Family history of heart disease Social History Smoking Status: Current every day smoker tobacco type: cigarettes packs per day: 1 alcohol intake: never counseling provided: none substance use type: marijuana current occupational status: retired and other Travel in the last 8 weeks: None household members: spouse housing: house number of children: 1 [facility] Anesthesia Checklist Patient Identification Patient Identification: Arm Band and Verbal (Name & ) Structural Data Admitted From: Home Planned Operative Procedure/s: ERCP Consent for Planned Operative Procedure(s) Verified: Yes Verified Documents: Surgical Consent and History and Physical NPO Status Verified Time NPO: 00:00 Airway Assessment Mallampati Score:: Class III C-Spine Mobility Assessed: Yes TMJ Mobility Assessed: Yes Dentition: Dentures-poor fitting (Removed) Neurological Assessment Level of Consciousness: Awake Hx Seizures: No Numbness or tingling in extremities: No Anesthesia Plan Anesthesia Risk discussed: Yes Anesthesia Plan: Verified ASA Class: II Anesthesia Type: General
[2023-12-01] MEDS: LACTATED RINGERS 1000ML 1,000 ML 25 ML IV (12:00)
--- NOTE | 2023-12-01 13:02 | HMH.PROCNOTE ---
[facility] Procedure Note Date: 12/01/23 Time: 13:02 Procedure Note:: ERCP procedure Report: Endoscopic retrograde cholangiopancreatography with biliary sphincterotomy and balloon extraction Endoscopist: Dillon Bourgeois II, MD Referring Physician: Cedrick Almaguer MD Date of Procedure: 12/01/2023 Equipment: Olympus 180 side viewing endoscope duodenoscope Sedation: MAC sedation Indication: Mrs. Mirza is a 63-year-old female who is here for ERCP and has been having right upper quadrant abdominal pain. She was referred to the [facility] for ERCP. The patient left the [facility] AGAINST MEDICAL ADVICE. Her primary care physician notified my office yesterday and ERCP is arranged. Her most recent chemistries from 11/24/2023 showed total bilirubin 0.5, AST 25, ALT 19, alkaline phosphatase 112. On 11/18, her total bilirubin was 1.8, AST 57 and alkaline phosphatase 73. The patient did have a CAT scan of the abdomen pelvis that showed intrahepatic and extrahepatic biliary ductal dilation and possibly abrupt distal narrowing. 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 The patient's MRCP subsequently showed moderate biliary and mild pancreatic ductal dilation with no evidence of stones. A small mass or stricture at the level of the ampulla could not be excluded. ERCP is performed for further evaluation. The patient has had some right upper quadrant abdominal pain that is improving. Procedure: Prior to the procedure, a history and physical exam was performed, and patient's medications and allergies were reviewed. The risks, benefits and alternatives of the sedation and procedure were discussed with the patient. All questions were answered and informed consent was obtained. The patient was brought to the fluoroscopic radiology room. Patient identification and proposed procedure were verified by the physician and the nurse. The patient was placed in a swimmer's position between left lateral decubitus and prone position and the scope was passed under direct vision. Throughout the procedure, the patient's blood pressure, pulse, and oxygen saturations were monitored continuously. The ERCP was accomplished without difficulty. The patient tolerated the procedure well. Findings: The side-viewing duodenoscope was passed directly into the upper esophagus and advanced to the second portion of the duodenum. The ampulla was well-visualized and there was no periampullary duodenum in this region. The common bile duct was selectively cannulated. This was cannulated with a guidewire. A cholangiogram was performed and the common bile duct and common hepatic duct were maximally 12 to 13 mm in diameter. There was no stone or stricture and there was smooth tapering at the ampulla. A 11 to 12 mm sphincterotomy was performed. There was some heme noted with rapid hemostasis. Next, a sweeping balloon 9 to 12 mm was placed above the hilum and swept to the biliary system with the passage of long bile but no stones. The pancreatic duct was not cannulated intentionally. Impression: 1. 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 I did sweep the biliary system twice with yielding mostly bile with excellent biliary flow and decompression of the biliary system. Given the fact that she has had right upper quadrant abdominal pain with elevated bilirubin and liver chemistries, I do feel that she did have functional sphincter of Oddi dysfunction spasm causing her pain and elevated bilirubin. I did perform biliary sphincterotomy for correction. The patient is hemodynamically stable postprocedure.
--- NOTE | 2023-12-01 13:13 | P.PNANES_ITS ---
[facility] Anesthesia Record Part I Anesthesia Record I Intake, IV Amount: 1,200 Hydration: Adequate Estimated blood loss (mL): 0 Urine output (mL): 0 Blood Pressure: 161/96 SaO2: 99 Pulse Rate: 78 Airway Patency: Patent Respiratory Rate: 12 Temperature: 97.5 F Patient is:: Awake and Stable Stable to PACU at:: 13:12
--- NOTE | 2023-12-01 13:22 | FL_ITS ---
FINAL REPORT CLINICAL HISTORY: POSS STONE IN COMMON BILE DUCT FT: 3:32 88.63 MGY FINDINGS: FLUOROSCOPY LESS THAN 1 HOUR HISTORY: Fluoroscopy guidance. Fluoroscopic guidance was provided for ERCP. A single spot film was obtained. A total of 3:32 minutes of fluoroscopy time were used. Total DAP: 88.63 mGy IMPRESSION: As above. Reviewed, Interpreted and Dictated by Steve Danielle MD Transcribed by Trisha Aguilera Authenticated and [facility]
[2023-12-01] MEDS: INDOMETHACIN 25 MG CAPSULE 100 MG PO (13:25)
[2023-12-01] MEDS: ONDANSETRON 4MG/2ML VIAL 4 MG IV (13:25)
[2023-12-01] MEDS: IOPAMIDOL-370 (76%);100ML BOTTLE 20 ML IV (13:33)
--- NOTE | 2023-12-05 10:03 | EXP.ANES.II ---
[facility] Anesthesia Record Part II Anesthesia Record Part II Discharge Time: 13:42 Destination: Surgical Day Care (OP Surgery) PACU nurse assessment reviewed?: Yes Patient Condition:: Good Anesthesia Complications:: None Swallowing reflex intact?: Yes Airway Patency: Patent Cyanosis?: No Blood Pressure: 136/84 SaO2: 95 Respiratory Rate: 16 Pulse Rate: 65 Temperature: 97.9 F Mental Status: Alert & Oriented Pain level:: 0 Nausea and/or vomitting:: None Intake, IV Amount: 0 Hydration: Adequate
[2023-12-05 10:04] VITALS: BP 136/84; PULSE 65; RESP 16; TEMP 36.6; O2SAT 95
== END 2023-12-01 14:15 | disposition home or self-care (01) ==
PROVIDERS: PCP Internal Medicine; Visit Provider Internal Medicine Gastroenterology
PROC: (CPT 43262; principal; 2023-12-01 12:45)
DX: R10.11 Right upper quadrant pain (principal); K83.8 Other specified diseases of biliary tract; K57.10 Diverticulosis of small intestine without perforation or abscess without bleeding; F17.210 Nicotine dependence, cigarettes, uncomplicated
CPT/HCPCS: 43262; 74330; C1889; J1100; J2250; J2405; J2710; J3010; J7120; Q9967

== ENCOUNTER 2024-03-22 14:15 | Outpatient (CLI) | payer MEDICARE, SELFPAY ==
[2024-03-22 20:13] LABS: Albumin Level 4.4 g/dl (3.5-5.0); Chloride 100 mmol/L (98-107); Potassium 4.7 mmoL/L (3.5-5.1); Sodium 137 mmol/L (136-145)
[2024-03-22 20:16] LABS: Alanine Aminotransferase 18 U/L (12-78); Albumin/Globulin Ratio 1.7 (1.1-1.8); Alkaline Phosphatase 110 U/L (38-126); Anion Gap 12.7 mEq/L (5-15); Aspartate Amino Transferase 32 U/L (14-36); Bilirubin,Total 0.4 mg/dl (0.2-1.3); Blood Urea Nitrogen 22 mg/dl (7-17); Calcium 9.5 mg/dl (8.4-10.2); Carbon Dioxide 29 mmol/L (22.0-30.0); Cholesterol 181 mg/dl (140-200); Estimated Glomerular Filt Rate 84 ml/min (>60); GFR (African American) 102 ML/MIN (>60); Globulin 2.6 g/dL (1.3-3.2); Glucose 65 mg/dl (74-100); Triglycerides 77 mg/dl (30-150); VLDL Cholesterol 15 mg/dL (0-40)
[2024-03-22 20:17] LABS: Chol/HDL Ratio 2.4 (1-3.5); HDL Cholesterol 76 mg/dl (40-60)
[2024-03-22 20:27] LABS: Direct LDL Cholesterol 86.45 mg/dL (100-129)
== END 2024-03-22 23:59 | disposition home or self-care (01) ==
LOC: LAB.DROPOF 03-23 10:11
PROVIDERS: PCP Internal Medicine; Visit Provider Internal Medicine
DX: E78.5 Hyperlipidemia, unspecified (principal); K80.50 Calculus of bile duct without cholangitis or cholecystitis without obstruction; M15.0 Primary generalized (osteo)arthritis
CPT/HCPCS: 80053; 80061

== ENCOUNTER 2024-04-16 13:56 | Outpatient (CLI) | payer MEDICARE, SELFPAY ==
--- NOTE | 2024-04-16 13:57 | MM_ITS ---
PROCEDURE INFORMATION: Exam: MG Bilateral Screening 3D Mammography Exam date and time: 04/16/2024 2:20 PM Age: 64 years old Clinical indication: Screening examination TECHNIQUE: Imaging protocol: Bilateral Screening tomosynthesis and 2D mammography including computer-aided detection (CAD) when performed. COMPARISON: No relevant prior studies available. FINDINGS: MAMMOGRAPHY: Breast composition: The breasts are heterogeneously dense, which may obscure small masses. Mass: None. Architectural distortion: None. Calcifications: No suspicious calcifications. Asymmetric density: None. Skin thickening: None. Axillary adenopathy: None. IMPRESSION: No mammographic evidence of malignancy. Annual screening is recommended unless otherwise clinically indicated. ASSESSMENT: BI-RADS Category 1: Negative.
== END 2024-04-16 23:59 | disposition home or self-care (01) ==
LOC: RAD 13:57
PROVIDERS: PCP Internal Medicine; Visit Provider Internal Medicine
DX: Z12.31 Encounter for screening mammogram for malignant neoplasm of breast (principal)
CPT/HCPCS: 77063; 77067

== ENCOUNTER 2024-09-26 14:21 | Outpatient (CLI) | payer MEDICARE, SELFPAY ==
[2024-09-26 17:17] LABS: Hematocrit 46.1 % (37.0-47.0); Hemoglobin 15.3 g/dL (12.2-16.2); Immature Granulocytes % 0.1 %; Mean Corpuscular HGB Conc 33.2 g/dL (31.8-35.4); Mean Corpuscular Hemoglobin 31.0 pg (27.0-31.2); Mean Corpuscular Volume 93.3 fl (81-99); Nucleated Red Blood Cells % 0 %; Platelet Count 265 K/mm3 (142-424); Red Blood Count 4.94 M/mm3 (4.20-5.40); Red Cell Distribution Width-SD 53.3 fL; White Blood Count 6.8 K/mm3 (4.8-10.8)
[2024-09-26 17:42] LABS: Alanine Aminotransferase 13 U/L (12-78); Albumin Level 4.9 g/dl (3.5-5.0); Albumin/Globulin Ratio 1.6 (1.1-1.8); Alkaline Phosphatase 115 U/L (38-126); Anion Gap 13.4 mEq/L (5-15); Aspartate Amino Transferase 26 U/L (14-36); Bilirubin,Total 0.7 mg/dl (0.2-1.3); Blood Urea Nitrogen 8 mg/dl (7-17); Calcium 10.6 mg/dl (8.4-10.2); Carbon Dioxide 27 mmol/L (22.0-30.0); Chloride 100 mmol/L (98-107); Cholesterol 266 mg/dl (140-200); Creatinine,Serum 0.60 mg/dl (0.52-1.04); Estimated Glomerular Filt Rate 100 ml/min (>60); GFR (African American) 121 ML/MIN (>60); Globulin 3.0 g/dL (1.3-3.2); Glucose 95 mg/dl (74-100); HDL Cholesterol 94 mg/dl (40-60); Potassium 4.4 mmoL/L (3.5-5.1); Sodium 136 mmol/L (136-145); Total Protein,Serum 7.9 g/dl (6.3-8.2); Triglycerides 83 mg/dl (30-150)
[2024-09-26 18:47] LABS: Hepatitis C Ab Qual. W/ RFX NEGATIVE (Negative)
--- OUTSIDE RECORDS SUMMARY | 2024-09-27 09:57 | XMS_ITS | Clinical Summary ---
Author Organization Healthcare Address [address] [place] [address] Care Team Providers Care National Sales Trainer Name Role Phone Cedrick Almaguer MD Primary Care Provider [phone] Allergies Active Allergy Reactions Criticality Noted Date Comments Sulfamethoxazole-Trimethoprim Rash Low 2018 Medications diazePAM (Valium) 5 MG tablet Take 1 tablet (5 mg) by mouth 2 (two) times a day. Active oxyCODONE-aceta minophen (Percocet) 10-325 MG tablet Take 1 tablet by mouth 4 (four) times a day. Active omeprazole (PriLOSEC) [address] capsule Take 1 capsule (20 mg) by mouth 1 (one) time each day. Do not crush or chew. Active lovastatin (Mevacor) 20 MG tablet Take 1 tablet (20 mg) by mouth every night. Active citalopram (CeleXA) 40 MG tablet Take 1 tablet (40 mg) by mouth 1 (one) time each day. Active Multiple Vitamin (multivitamin) tablet Take 1 tablet by mouth 1 (one) time each day. Active Active Problems Problem Noted Date Diagnosed Date Common bile duct dilation 11/20/2023 Overview (11/20/2023): US showed a dilated common duct measuring 11 mm with no evidence of cholecystitis. Will monitor overnight, and plan for MRCP and HIDA scan tomorrow. COPD (chronic obstructive pulmonary disease) 10/2023 Overview (11/20/2023): Restart home inhalers as appropriate Hypercholesterolemia 11/20/2023 Overview (11/20/2023): Restart home meds as appropraite Resolved Problems Problem Noted Date Diagnosed Date Resolved Date Hypomagnesemia 11/20/2023 11/21/2023 Overview (11/20/2023): Monitor and replace Immunizations Immunization Administration Dates Next Due Hep B, Unspecified 03/02/2006,11/25/2005, 006 Influenza Vaccine, Quadrivalent, Adjuvanted 12/13,12/05/2009,03/31/2009 Influenza, Unspecified 12/31/2012,01/31/2012 Influenza, injectable, quadrivalent 02/27/2019 Pneumococcal Conjugate PCV 13 02/27/2019 Pneumococcal Polysaccharide PPV23 04/11/2020, Tdap 08/20/2010 Zoster, Recombinant 09/26/2020,04/11/2020 Zoster, live 03/02/2013 Social History Tobacco Use Types Packs/Day Years Used Date Smoking Tobacco: Never Assessed Comments Unknown Sex and Gender Information Value Date Recorded Sex Assigned at Not on file Legal Sex Female 7:47 PM EDT Gender Identity Not on file Sexual Orientation Not on file Last Filed Vital Signs Vital Sign Reading Time Taken Comments Blood Pressure 116/72 11/21/2023 7:31 AM EDT Pulse 54 11/21/2023 7:31 AM EDT Temperature 36.5 C (97.7 F) 11/21/2023 4:16 AM EDT Respiratory Rate 16 11/21/2023 4:16 AM EDT Oxygen Saturation 88% 11/21/2023 7:31 AM EDT Inhaled Oxygen Concentration - - Weight 57.2 kg (126 lb) 11/19/2023 11:29 PM EDT Height 170.2 cm (5' 7 ) 11/19/2023 11:29 PM EDT Body Mass Index 19.73 11/19/2023 11:29 PM EDT Plan of Treatment Health Maintenance Due Date Last Done Comments [facility]-Bone Density Scan 1958 [facility]-Depression Screening 1958 [facility]-Medicare Annual Wellness (AWV) 1960 [facility]-Infant/Child/Adol SDOH Screenings 1958 [facility]- SDOH Screenings 1976 [facility]-Adult SDOH Screenings 1976 CT Colonography 2003 Colonoscopy 2003 FIT-DNA 2003 FIT 2003 FOBT 2003 Sigmoidoscopy 2003 [facility]-Colorectal Cancer Screening 2003 [facility]-Breast Cancer Screening 2008 [facility]-DTaP,Tdap,and Td Vaccines (2 - Td or Tdap) 08/20/2020 08/20/2010 [id number] Vaccine (5 - season) 2023 10/30/2021, 02/08/2021, 08/02/2020, Additional history exists [facility]-Influenza Vaccine (#1) 11/12/202402/27, 12/31/2012, 01/31/2012, Additional history exists [facility]-RSV Vaccine: 60+ Years or (1 - 1-dose 75+ series) 2033 [facility]-Pneumococcal Vaccine: 50+ Years Completed 04/11/2020, 02/27/2019, 01/31/2012 [facility]-Zoster Vaccines Completed 09/26/2020, 04/11/2020, 03/02/2013 [facility]-Hepatitis C Screening Completed 11/20/2023 HPV Vaccines Aged Out No longer eligi ble based on patient's age to complete this topic [facility]-HIB Vaccines Aged Out No longer e ligible based on patient's age to complete this topic [facility]-Hepatitis A Vaccines Aged Out No longer eligible based on patient's age to complete this topic [facility]-IPV Vaccines Aged Out No longer e ligible based on patient's age to complete this topic [facility]-Rotavirus Vaccines Aged Out No lo nger eligible based on patient's age to complete this topic Procedures Procedure Name Priority Date/Time Associated Diagnosis Comments HEPATITIS C ANTIBODY - ED W/REFLEX TO HCV QUANT PCR STAT 11/20/2023 1:15 AM EDT from Last 3 Months or Most Recently Relevant to Health Maintenance Results * Hepatitis C Antibody - ED (11/20/2023 1:15 AM EDT) Hepatitis C Antibody Negative Negative 11/20/2023 2:12 AM EDT [facility] Blood Venous blood specimen / Unknown Venipuncture / Unknown 11/20/2023 1:15 AM EDT 11/20/2023 1:32 AM EDT Philipp Del Toro MD LAB BLOOD ORDERABLES Final Re sult [facility] [address] [place] [address] from Last 3 Months or Most Recently Relevant to Health Maintenance Insurance [facility] MEDICARE Advance Directives * Full Code (Latest Code Status on File) Date Activated Date Inactivated Comments 11/20/2023 5:14 AM 11/21/2023 12:24 PM Question Answer Comments Patient has decision-making capacity? Yes Care Teams National Sales Trainer Relationship Specialty Start Date End Date Cedrick Almaguer MD [address] [facility] [address] [place] [address] PCP - General 07/25/20
--- OUTSIDE RECORDS SUMMARY | 2024-09-27 09:57 | XMS_ITS | Clinical Summary ---
Author Organization [facility] Address [address] [place] [phone] Phone Care Team Providers Care General Farm Hand Name Role Phone Unavailable Unavailable Conditions or Problems No information available. Medications No information available. Medications Administered No information available. Allergies, Adverse Reactions, Alerts No information available. Results No information available. Plan of Care No information available. Procedures No information available. Vital Signs No information available. Immunizations No information available. Advance Directives No information available.
--- OUTSIDE RECORDS SUMMARY | 2024-09-27 09:57 | XMS_ITS | Clinical Summary ---
Author Organization [facility] Primary Care Address [address] [place] [address] Phone Care Team Providers Care Gynecology Teacher Name Role Phone Unavailable Primary Care Provider Unavailabl e Allergies Active Allergy Reactions Criticality Noted Date Comments Sulfamethoxazole-Trimethoprim Medications calcium carb & citrate-vit D3 (CITRACAL + D SLOW RELEASE) 600 mg calcium- 500 unit TbSRIndications: hypocalcemia Take by mouth daily. Takes 500 mg 2 qd Indications: HYPOCALCEMIA Active HYDROcodone-acet aminophen (LORCET) 10-650 mg per tabletIndication s:Backache, unspecified Take 1 Tab by mouth every 6 hours as needed for Pain. 100 Tab 1 2 Active Additional Information Patient not taking.Reported on 01/19/2016 simvastatin (ZOCOR) 20 mg tabletIndication s:Hyperlipemia Take 1 Tab by mouth nightly. at bedtime 90 Tab 1 4 Active Additional Information Patient not taking.Reported on 01/19/2016 omeprazole (PRILOSEC) 20 mgIndications:GE RD (gastroesophagea l reflux disease) Take 1 Cap by mouth daily. 90 Cap 1 4 Active Additional Information Patient not taking.Reported on 01/19/2016 sertraline (ZOLOFT) 25 mg Oral TabletIndication s:Generalized anxiety disorder Take 1 Tab by mouth daily. 30 Tab 2 5 Active Additional Information Patient not taking.Reported on 01/19/2016 diazePAM (VALIUM) 5 mg Oral TabletIndication s:anxiety Take 1 Tab by mouth every 6 hours as needed for Anxiety. 1 - 2 tabs Qhs PRN Indications: ANXIETY 60 Tab 2 6 Active lisinopril (PRINIVIL;ZESTRI L) 10 mg Oral TabletIndication s:Essential hypertension Take 1 Tab by mouth daily. for blood pressure 90 Tab 1 6 Active sertraline (ZOLOFT) 50 mg Oral TabletIndication s:Generalized anxiety disorder Take 1 Tab by mouth daily. 30 Tab 5 6 Active Active Problems Patient Care Coordination No te Formatting of this note migh t be different from the original. [facility] 05/30/12 Cstya,benzo,soapp, pauline 01/31/12 PAULINE/CSTA/BENZO.SOAPP 01/31/12 03/26/13 LETTER RECEIVED FROM THE ELISEO ASHBY MD [facility] PAIN DOCTOR WHERE PT DISMISSED FROM THEIR PRACTICE FOR FAILURE TO COMPLY WITH DRUG TESTING AND MANDATORY PILL COUNTS . NO CONTROLS FROM US IN THE FUTURE. THE PAIN DOCTOR PLANS TO TREAT WITH NONCONTROLLED DRUGS DR RUVALCABA Problem Noted Date Diagnosed Date Generalized anxiety disorder Backache, unspecified Unspecified essential hypertension Degeneration of intervertebral disc, site unspec ified Former smoker Immunizations Immunization Administration Dates Next Due Hepatitis B, Unspecified Formulation 03/02/2006, 11/25/2005,09/10/2005 Influenza Vaccine, Unspecifi ed Formulation 12/31/2012,01/31/2012,01/08/2011,12/05,03/31/2009 Pneumococcal Polysaccharide 23 Valent 01/31/2012 Tdap 08/20/2010 Zoster 03/02/2013 Surgical History Surgery Date Site/Laterality Comments OTHER SURGICAL HISTORY mrsa Social History Tobacco Use Types Packs/Day Years Used Date Smoking Tobacco: Former Cigarettes Q uit: 09/30/2009 Alcohol Use Standard Drinks/Week Comments No 0 (1 standard drink = 0.6 oz pur e alcohol) Comments No Sex and Gender Information Value Date Recorded Sex Assigned at Not on file Legal Sex Female 2:08 AM EDT Gender Identity Not on file Sexual Orientation Not on file Obstetrics History Last Filed Vital Signs Vital Sign Reading Time Taken Comments Blood Pressure 122/84 01/19/2016 6:13 PM EST Pulse 80 01/19/2016 6:13 PM EST Temperature 37.6 C (99.7 F) 01/19/2016 6:13 PM EST Respiratory Rate 16 01/19/2016 6:13 PM EST Oxygen Saturation - - Inhaled Oxygen Concentration - - Weight 67 kg (147 lb 9.6 oz) 01/19/2016 6:13 PM EST Height 167.6 cm (5' 6 ) 01/19/2016 6:13 PM EST Body Mass Index 23.82 01/19/2016 6:13 PM EST Plan of Treatment Health Maintenance Due Date Last Done Comments Annual Wellness Exam 1961 Hepatitis C Screening 1976 Cologuard 2003 Colon Cancer Screening 2003 Colonoscopy 2003 FIT 2003 Sigmoidoscopy 2003 Virtual Colonography 2003 Breast Cancer Screening 03/14/2010 03/14/19 09, 03/23/2005, 03/04/2005 Pneumococcal Vaccine 50+ (2 of 2 - PCV) 01/30/2013 01/31/2012 Zoster (2 of 3) 04/27/2013 03/02/2013 DTaP/TDaP/Td (2 - Td or Tdap) 08/20/2020 08/20/2010 Bone Density Screening 2023 COVID-19 Vaccine (2023- season) 2023 Influenza Vaccine (#1) 2024 3, 01/31/2012, 01/08/2011, Additional history exists Hepatitis B Vaccine Completed 03/02/2006, 11/25/2005, 09/10/2005 Meningococcal B Vaccine Aged Out No l onger eligible based on patient's age to complete this topic Goals Goal Patient Goal Type Associated Problems Recent Progress Patient-Stated? Author Blood Pressure < 140/90 Blood Pressure 122/84(2015 6:13 PM EST) No Shayna Salazar RMA Maintain a healthy diet, exercise regularly and maintain an ideal body weight General No Shayna Salazar RMA Stay Tobacco Free Lifestyle No Shayna Salazar RMA Procedures Procedure Name Priority Date/Time Associated Diagnosis Comments MAMMOGRAPHY Routine 03/14/2008 from Last 3 Months or Most Recently Relevant to Health Maintenance Results * MAMMOGRAPHY (03/14/2008) Historical Provider HEALTH MAINTENANCE Final Res ult from Last 3 Months or Most Recently Relevant to Health Maintenance Insurance [employer]
== END 2024-09-26 23:59 | disposition home or self-care (01) ==
LOC: LAB.DROPOF 09-27 09:56
PROVIDERS: PCP Internal Medicine; Visit Provider Internal Medicine
DX: J44.9 Chronic obstructive pulmonary disease, unspecified (principal); Z11.4 Encounter for screening for human immunodeficiency virus [HIV]; M15.0 Primary generalized (osteo)arthritis; E78.5 Hyperlipidemia, unspecified; Z11.59 Encounter for screening for other viral diseases
CPT/HCPCS: 80053; 80061; 80074; 85025; 87389

== ENCOUNTER 2024-11-29 17:10 | Emergency (ER) | payer MEDICARE, SELFPAY ==
--- OUTSIDE RECORDS SUMMARY | 2024-11-29 17:20 | XMS_ITS | Clinical Summary ---
Author Organization [facility] Address [address] [place] [address] Care Team Providers Care Broadcast Technician Name Role Phone Cedrick Almaguer MD Primary Care Provider [phone] Allergies Active Allergy Reactions Criticality Noted Date Comments Sulfamethoxazole-Trimethoprim Rash Low 2018 Medications No known medications Active Problems No known active problems Family History Medical History Relation Name Comments Cancer Maternal Aunt Diabetes Maternal Grandmother Relation Name Status Comments Maternal Aunt Maternal Grandmother Social History Tobacco Use Types Packs/Day Years Used Date Smoking Tobacco: Every Day Cigarettes Abuse Screen Answer Date Recorded Unsafe at Home or Work/School Not on file Feels Threatened by Someone? Not on file 02/2023 Does Anyone Keep You from Co ntacting Others or Doint Things Outside the Home? Not on file 12/23/2022 Physical Sign of Abuse Present Not on file 1 Housing Stability Answer Date Recorded Current Living Arrangements Not on file 12/12 Potentially Unsafe Housing Conditions Not on claudine e 12/23/2022 Family and Community Support Answer Venkatesh e Recorded Help with Day-to-Day Activities Not on file 12/23/2022 Lonely or Isolated Not on file 12/23/2022 Employment Answer Date Recorded Do you want help finding or keeping work or a zafar b? Not on file 12/23/2022 Disabilities Answer Date Recorded Concentrating, Remembering, or Making Decisions Difficulty Not on file 12/23/2022 Doing Errands Independently Difficulty Not on fi le 12/23/2022 Education Answer Date Recorded Help with school or training? Not on file Preferred Language Not on file 12/23/2022 Comments Unknown Sex and Gender Information Value Date Recorded Sex Assigned at Not on file Legal Sex Female 9:01 AM EST Gender Identity Not on file Sexual Orientation Not on file Last Filed Vital Signs Vital Sign Reading Time Taken Comments Blood Pressure - - Pulse - - Temperature 36.7 C (98.1 F) 02/23/2019 2:14 PM EST Respiratory Rate - - Oxygen Saturation - - Inhaled Oxygen Concentration - - Weight 61.2 kg (135 lb) 02/23/2019 2:14 PM EST Height 172.7 cm (5' 8 ) 02/23/2019 2:14 PM EST Body Mass Index 20.53 02/23/2019 2:14 PM EST Plan of Treatment Health Maintenance Due Date Last Done Comments DXA SCAN 1958 MAMMOGRAM 1998 COLOGUARD 2003 COLON CANCER SCREENING 5 YEA R SIGMOIDOSCOPY 2003 COLONOSCOPY 2003 COL[address] CANCER SCREENING 2003 CT COLONOGRAPHY 2003 FECAL OCCULT BLOOD TEST 2003 FIT Testing (1 year) 2003 ZOSTER VACCINE (2 of 3) 04/27/2013 03/02/2013 ANNUAL PHYSICAL 02/23/2019 TDAP/TD VACCINES (2 - Td or Tdap) 08/20/2020 011 Pneumococcal Vaccine 50+ (3 of 3 - PCV20 or PCV21) 02/28/2024 02/27/2019, 01/31/2012 COVID-19 Vaccine (1 - 2023-2 5 season) 2024 INFLUENZA VACCINE 12/12/2024 12/31/2012, , 01/08/2011, Additional history exists HEPATITIS C SCREENING Completed 11/20/[address] [facility] Care Teams Broadcast Technician Relationship Specialty Start Date End Date Cedrick Almaguer MD [address] [place] [address] [address] [place] [id number] PCP - General Internal Medicine 01/15/19
--- OUTSIDE RECORDS SUMMARY | 2024-11-29 17:20 | XMS_ITS | Clinical Summary ---
Author Organization Healthcare Address [address] [place] [address] Care Team Providers Care Banana Grader Name Role Phone Cedrick Almaguer MD Primary Care Provider [phone] Allergies Active Allergy Reactions Criticality Noted Date [...] (2 - Td or Tdap) 08/20/2020 08/20/2010 [id number] Vaccine (5 - season) 2024 10/30/2021, 02/08/2021, 08/02/2020, Additional history exists [facility]-Influenza [...] Antibody Negative Negative 11/20/2023 2:12 AM EDT [facility] Blood Venous blood specimen / Unknown Venipuncture / Unknown 11/20/2023 1:15 AM EDT 11/20/2023 1:32 AM EDT Philipp Del Toro MD LAB BLOOD ORDERABLES Final Re sult [facility] [address] [place] [address] from Last 3 Months or Most Recently Relevant to Health Maintenance Insurance [facility] MEDICARE Advance Directives * Full Code (Latest Code Status on File) Date Activated Date Inactivated Comments 11/20/2023 5:14 AM 11/21/2023 12:24 PM Question Answer Comments Patient has decision-making capacity? Yes Care Teams Banana Grader Relationship Specialty Start Date End Date Cedrick Almaguer MD [address] [facility] [address] [place] [address] PCP - General 07/25/20
--- OUTSIDE RECORDS SUMMARY | 2024-11-29 17:20 | XMS_ITS | Clinical Summary ---
Author Organization [facility] Primary Care Address [address] [place] [address] Phone Care Team Providers Care Maths Tutor Name Role Phone Unavailable Primary Care Provider [...] LETTER RECEIVED FROM THE ELISEO ASHBY MD [facility] PAIN DOCTOR WHERE PT DISMISSED [...] Density Screening 2023 COVID-19 Vaccine (2023- season) 2024 Influenza Vaccine (#1) 2024 3, 01/31/2012, 01/08/2011, [...]
--- NOTE | 2024-11-29 17:21 | CT_ITS ---
PROCEDURE INFORMATION: Exam: CT Lumbar Spine Without Contrast Exam date and time: 11/29/2024 5:57 PM Age: 64 years old Clinical indication: Low back pain TECHNIQUE: Imaging protocol: Computed tomography of the lumbar spine without contrast. Radiation optimization: All CT scans at this facility use at least one of these dose optimization techniques: automated exposure control; mA and/or kV adjustment per patient size (includes targeted exams where dose is matched to clinical indication); or iterative reconstruction. COMPARISON: MR ABDOMEN WO CON 11/25/2023 3:16 PM FINDINGS: Bones/joints: No acute fracture. Normal alignment. No significant disc bulge or herniation. No severe spinal canal stenosis. No significant neural foraminal narrowing. Gallbladder and biliary ducts: The common duct measures at least 9 mm in diameter, which is abnormal but unchanged. Kidneys and ureters: Nonobstructing right renal calculi. Low and high attenuation renal lesions measuring up to 13 mm in diameter are incompletely characterized, but are likely simple and hyperdense cysts. No followup imaging is warranted. Stomach and bowel: Mild sigmoid diverticulosis without diverticulitis. Appendix: Unremarkable appendix. Vasculature: The arteries demonstrate severe atherosclerotic disease. Unruptured 3.7 cm infrarenal abdominal aortic aneurysm, which is fusiform in shape and extends to the bifurcation without involving the common iliac arteries. Soft tissues: Unremarkable. IMPRESSION: 1. No acute fracture or malalignment of the lumbar spine. 2. Unruptured 3.7 cm infrarenal abdominal aortic aneurysm, which is fusiform in shape and extends to the bifurcation without involving the common iliac arteries. 3. Nonobstructing right renal calculi. COMMENTS: Consistent with the [employer]'s Incidental Findings Committee white paper (J Am Mia Radiol 2018): Any incidental renal lesion less than 1 cm or classified as too small to characterize, or any incidental cystic renal lesion characterized as simple-appearing, is likely benign. No follow-up imaging is recommended for these lesions per consensus recommendations based on imaging criteria.
--- NOTE | 2024-11-29 17:21 | CT_ITS ---
PROCEDURE INFORMATION: Exam: CT Left Lower Extremity Without Contrast, Hip Exam date and time: 11/29/2024 5:59 PM Age: 64 years old Clinical indication: Pain; Hip; Left; Additional info: Left hip pain TECHNIQUE: Imaging protocol: CT of the left lower extremity without contrast was performed. Exam focused on the hip. Radiation optimization: All CT scans at this facility use at least one of these dose optimization techniques: automated exposure control; mA and/or kV adjustment per patient size (includes targeted exams where dose is matched to clinical indication); or iterative reconstruction. COMPARISON: CR XR HIP LT 2-3V W/PELVIS 05/30/2019 3:44 PM FINDINGS: Bones/joints: No acute fracture or dislocation. Soft tissues: Normal. Vasculature: The arteries demonstrate moderate atherosclerotic disease. IMPRESSION: No acute fracture or dislocation.
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
[2024-11-29 17:28] VITALS: BP 130/82; PULSE 78; RESP 19; TEMP 37.1; O2SAT 94; BMI 21.1
[2024-11-29 17:38] VITALS: PULSE 87; O2SAT 95
[2024-11-29] MEDS: KETOROLAC 30MG/ML VIAL 30 MG IV (17:44)
[2024-11-29] MEDS: ORPHENADRINE CITRATE 60MG/2ML VIAL 60 MG IV (17:44)
[2024-11-29] MEDS: DEXAMETHASONE 4MG/ML 1ML VIAL 8 MG IV (17:44)
[2024-11-29] MEDS: LIDOCAINE 5% TRANSDERMAL PATCH 1 EACH TD (17:44)
[2024-11-29 18:01] VITALS: PULSE 91; RESP 19; O2SAT 93
[2024-11-29 18:15] VITALS: PULSE 79; RESP 19; O2SAT 96
[2024-11-29 18:30] VITALS: PULSE 74; RESP 17; O2SAT 93
[2024-11-29 19:29] VITALS: BP 124/74; PULSE 77; RESP 17; TEMP 37.2
== END 2024-11-29 19:54 | disposition home or self-care (01) ==
PROVIDERS: Emergency Provider Student in an Organized Health Care Education/Training Program; PCP Internal Medicine
DX: M54.42 Lumbago with sciatica, left side (principal); G89.29 Other chronic pain; F17.210 Nicotine dependence, cigarettes, uncomplicated
CPT/HCPCS: 72131; 73700; 96374; 96375; 99284; 99285; J1100; J1885; J2360

== ENCOUNTER 2025-01-10 14:48 | Outpatient (CLI) | payer MEDICARE, SELFPAY ==
--- OUTSIDE RECORDS SUMMARY | 2025-01-10 14:49 | XMS_ITS | Clinical Summary ---
[facility] Organization [facility] Address [address] [place] [address] Care Team Providers Care Technical Buyer Name Role Phone Cedrick Almaguer MD Primary Care Provider [phone] Allergies Active Allergy Reactions Criticality Noted Date [...] - PCV20 or PCV21) 02/28/2024 02/27/2019, 01/31/2012 INFLUENZA VACCINE 10/12/2024 12/31/2012, , 01/08/2011, Additional history exists COVID-19 Vaccine (1 - 2023-2 5 season) 2024 HEPATITIS C SCREENING Completed 11/20/2023 Insurance [facility] Care Teams Technical Buyer Relationship Specialty Start Date End Date Cedrick Almaguer MD [address] [place] [facility] [address] [place] [address] PCP - General Internal Medicine 01/15/19
--- OUTSIDE RECORDS SUMMARY | 2025-01-10 14:49 | XMS_ITS | Clinical Summary ---
Author Organization [facility] Primary Care Address [address] [place] [address] Phone Care Team Providers Care Pre K Teacher Name Role Phone Unavailable Primary Care [...] LETTER RECEIVED FROM THE ELISEO ASHBY MD [facility] PAIN DOCTOR WHERE PT DISMISSED FROM THEIR [...] 08/20/2010 Bone Density Screening 2023 COVID-19 Vaccine (1 - 2024- season) 2024 Influenza Vaccine (#1) 2024 3, [...] Recently Relevant to Health Maintenance Results * HM MAMMOGRAPHY (03/14/2008) us Historical Provider HEALTH MAINTENANCE Final Res ult from Last 3 Months or Most Recently Relevant to Health Maintenance Insurance [facility] POS [facility] POS
--- OUTSIDE RECORDS SUMMARY | 2025-01-10 14:49 | XMS_ITS | Clinical Summary ---
Author Organization Healthcare Address [address] [place] [address] Care Team Providers Care Adjusto Writer Operator Name Role Phone Cedrick Almaguer MD Primary Care Provider [phone] Allergies Active Allergy Reactions Criticality Noted Date [...] Screening 1958 [facility]-Medicare Annual Wellness (AWV) 1958 [facility]-/Child/Adol SDOH Screenings 1958 [facility]- SDOH Screenings 1976 [facility]-Adult SDOH Screenings 1976 CT Colonography 2003 Colonoscopy 2003 FIT-DNA 2003 FIT 2003 FOBT 2003 Sigmoidoscopy 2003 [facility]-Colorectal Cancer Screening 2003 [facility]-Breast Cancer Screening 2008 [facility]-DTaP,Tdap,and Td Vaccines (2 - Td or Tdap) 08/20/2020 08/20/2010 [id number] Vaccine (5 - season) 2024 10/30/2021, 02/08/2021, [...] Antibody Negative Negative 11/20/2023 2:12 AM EDT [facility] Blood Venous blood specimen / Unknown Venipuncture / Unknown 11/20/2023 1:15 AM EDT 11/20/2023 1:32 AM EDT Philipp Del Toro MD LAB BLOOD ORDERABLES Final Re sult [facility] [address] [place] [address] from Last 3 Months or Most Recently Relevant to Health Maintenance Insurance [facility] MEDICARE Advance Directives * Full Code (Latest Code Status on File) Date Activated Date Inactivated Comments 11/20/2023 5:14 AM 11/21/2023 12:24 PM Question Answer Comments Patient has decision-making capacity? Yes Care Teams Adjusto Writer Operator Relationship Specialty Start Date End Date Cedrick Almaguer MD [address] [facility] [address] [place] [address] PCP - General 07/25/20
--- OUTSIDE RECORDS SUMMARY | 2025-01-10 14:49 | XMS_ITS | Clinical Summary ---
Author Organization [facility] Address [address] [place] [id number] Phone Care Team Providers Care Cellophane Casting Machine Repairer Name Role Phone Unavailable Unavailable Conditions or Problems No information available. Medications No information available. Medications Administered No information available. Allergies, Adverse Reactions, Alerts No information available. Results No information available. Plan of Care No information available. Procedures No information available. Vital Signs No information available. Immunizations No information available. Advance Directives No information available.
--- NOTE | 2025-01-10 15:30 | CT_ITS ---
FINAL REPORT TECHNIQUE: Axial images were obtained from the lung apex to the mid abdomen by computed tomography. This study was performed with techniques to keep radiation doses as low as reasonably achievable (ALARA). Individualized dose reduction techniques using automated exposure control or adjustment of mA and/or kV according to the patient's size were employed. CLINICAL HISTORY: lung cancer screening FINDINGS: CHEST CT LOW DOSE CTDI vol (mGy): 2.90 DLP (mGy-cm): 111.51 There is no axillary adenopathy. There is no hilar or mediastinal adenopathy. The heart is normal in size. There is no pericardial or pleural effusion. There is mild vascular calcification of the thoracic aorta. There are moderate changes of centrilobular emphysema. There is an ill-defined opacity in the right upper lobe. Central density measures 6 mm in greatest dimension on image 25 of series 3. There is also a small noncalcified nodule in the right lower lobe measuring 4 mm on image 55, series 3. Limited images of the upper abdomen reveal 2 small nonobstructing stones in the superior right kidney measuring about 3 mm. IMPRESSION: Ill-defined right upper lobe opacity measures 6 mm. Lung RADS category 3. Recommend 6 month follow-up low-dose chest CT. Reviewed, Interpreted and Dictated by Steve Danielle MD Transcribed by Amita Reece Authenticated and [facility]
== END 2025-01-10 23:59 | disposition home or self-care (01) ==
LOC: RAD 14:48
PROVIDERS: PCP Internal Medicine; Visit Provider Internal Medicine
DX: J44.9 Chronic obstructive pulmonary disease, unspecified (principal); R91.8 Other nonspecific abnormal finding of lung field; F17.210 Nicotine dependence, cigarettes, uncomplicated; Z12.2 Encounter for screening for malignant neoplasm of respiratory organs
CPT/HCPCS: 71271

== ENCOUNTER 2025-01-16 15:41 | Emergency (ER) | payer MEDICARE, SELFPAY ==
[2025-01-16] VITALS (17 sets, daily range): BP systolic 94–152; BP diastolic 67–96; PULSE 69–106; RESP 16–24; TEMP 36.6–36.8; O2SAT 84–99; BMI 22.7
--- OUTSIDE RECORDS SUMMARY | 2025-01-16 16:22 | XMS_ITS | Clinical Summary ---
Author Organization [facility] Address [address] [place] [id number] Phone Care Team Providers Care Electrolytic Etcher Name Role Phone Unavailable Unavailable Conditions or Problems No information available. Medications No information available. Medications Administered No information available. Allergies, Adverse Reactions, Alerts No information available. Results No information available. Plan of Care No information available. Procedures No information available. Vital Signs No information available. Immunizations No information available. Advance Directives No information available.
--- OUTSIDE RECORDS SUMMARY | 2025-01-16 16:23 | XMS_ITS | Clinical Summary ---
Author Organization [facility] Primary Care Address [address] [place] [address] Phone Care Team Providers Care Cabin Crew Name Role Phone Unavailable Primary Care Provider [...] LETTER RECEIVED FROM THE ELISEO ASHBY MD [facility] PA[facility] DO[facility] WHERE PT DISMISSED FROM [...] Salazar RMA Stay Tobacco Free Lifestyle No Shyana Salazar RMA Procedures Procedure Name Priority Date/Time Associated Diagnosis Comments MAMMOGRAPHY Routine 03/14/2008 from Last 3 Months or Most Recently Relevant to Health Maintenance Results * HM MAMMOGRAPHY (03/14/2008) us Historical Provider HEALTH MAINTENANCE Final Res ult from Last 3 Months or Most Recently Relevant to Health Maintenance Insurance [facility] POS [employer]NA POS
--- OUTSIDE RECORDS SUMMARY | 2025-01-16 16:23 | XMS_ITS | Clinical Summary ---
Author Organization Healthcare Address [address] [place] [address] Care Team Providers Care Roofing Machine Tender Name Role Phone Cedrick Almaguer MD Primary Care Provider [phone] Allergies Active Allergy Reactions Criticality Noted Date [...] (2 - Td or Tdap) 08/20/2020 08/20/2010 [id number] Vaccine (5 - season) 2024 10/30/2021, 02/08/2021, [...] Antibody Negative Negative 11/20/2023 2:12 AM EDT [facility] Blood Venous blood specimen / Unknown Venipuncture / Unknown 11/20/2023 1:15 AM EDT 11/20/2023 1:32 AM EDT Philipp Del Toro MD LAB BLOOD ORDERABLES Final Re sult [facility] [address] [place] [address] from Last 3 Months or Most Recently Relevant to Health Maintenance Insurance [facility] MEDICARE Advance Directives * Full Code (Latest Code Status on File) Date Activated Date Inactivated Comments 11/20/2023 5:14 AM 11/21/2023 12:24 PM Question Answer Comments Patient has decision-making capacity? Yes Care Teams Roofing Machine Tender Relationship Specialty Start Date End Date Cedrick Almaguer MD [address] [facility] [address] [place] [address] PCP - General 07/25/20
--- OUTSIDE RECORDS SUMMARY | 2025-01-16 16:23 | XMS_ITS | Clinical Summary ---
Author Organization [facility] Address [address] [place] [address] Care Team Providers Care Necktie Maker Name Role Phone Cedrick Almaguer MD Primary Care Provider [phone] Allergies Active Allergy Reactions Criticality Noted Date [...] 2024 HEPATITIS C SCREENING Completed 11/20/2023 Insurance [facility] Care Teams Necktie Maker Relationship Specialty Start Date End Date Cedrick Almaguer MD [address] [place] [facility] [address] [place] [address] PCP - General Internal Medicine 01/15/19
--- NOTE | 2025-01-16 16:45 | ED_ITS ---
Discharge Plan Disposition Patient Disposition: Home, Self-Care Condition: Good Prescriptions Prescriptions: New prednisone 20 mg tablet 20 mg PO DAILY 5 Days Qty: 5 0RF doxycycline hyclate 100 mg tablet 100 mg PO BID 7 Days Qty: 14 0RF No Action prednisone 10 mg tablet 10 mg PO DIRECTED Qty: 32 0RF Rx Instructions: see taper instructions: 4 tabs po qam x 5 days; 3 tabs po qam x 2 days; 2 tabs po qam x 2 days; 1 tab po qam x 2 days; then stop ondansetron 4 mg tablet,disintegrating See Rx Instructions .ROUTE .COMPLEX Qty: 20 1RF Dose Instruction: DISSOLVE 1 TABLET ON THE TONGUE EVERY 8 HOURS NEEDED FOR NAUSEA AND VOMITING Rx Instructions: DISSOLVE 1 TABLET ON THE TONGUE EVERY 8 HOURS NEEDED FOR NAUSEA AND VOMITING oxycodone-acetaminophen [Percocet] 10-325 mg tablet 1 tab PO Q6H PRN (Reason: pain) Qty: 120 0RF diazepam 5 mg tablet 5 mg PO BID PRN (Reason: anxiety) Qty: 60 0RF citalopram 40 mg tablet See Rx Instructions .ROUTE .COMPLEX Qty: 90 1RF Dose Instruction: TAKE ONE TABLET BY MOUTH ONCE A DAY Rx Instructions: TAKE ONE TABLET BY MOUTH ONCE A DAY atorvastatin [Lipitor] 80 mg tablet 80 mg PO DAILY Qty: 90 1RF albuterol sulfate 90 mcg/actuation HFA aerosol inhaler 2 puff inhalation Q6H PRN (Reason: shortness of breath or wheezing) Qty: 8.5 5RF omeprazole 20 mg capsule,delayed release(DR/EC) 20 mg PO DAILY Qty: 90 1RF fluticasone propion-salmeterol [Advair Diskus] 100-50 mcg/dose blister with device 1 inh inhalation DAILY Qty: 60 2RF methocarbamol 1,000 mg tablet 1,000 mg PO TID 14 Days Qty: 42 0RF ketorolac 10 mg tablet 10 mg PO Q8H PRN (Reason: pain) 5 Days Qty: 20 0RF Referrals Follow up/Referrals: Cedrick Almaguer MD [Primary Care Provider, Medical] - See instructions Activity Restrictions/Add. Instructions Additional Instructions/Restrictions: You are being sent home with oxygen to use at home. Ideally your oxygen levels should be between 90 to 94%. You are being prescribed doxycycline for a COPD exacerbation. I am also prescribing you a course of steroids. Take these as prescribed. Follow-up with Dr. Whitlock tomorrow regarding your new oxygen requirement and for close follow-up. If you develop any new or worsening symptoms, such as worsening shortness of breath, chest pain, low oxygen levels, or if you become concerned for your health for any reason, return to the emergency department for evaluation Clinical Impressions Clinical Impression: COPD exacerbation, Hypoxia Print Language Print Language: Gabonese Discharge ED Provider: David Hernadez HPI General Chief Complaint: Shortness of Breath/Dyspnea Stated Complaint: SOA,oxygen is low Time Seen by Provider: 01/16/25 16:32 Mode of Arrival: Ambulatory Source of Information: Patient Description of Symptoms (Recalled from ER Triage Doc. by RN): patient presents to ED for low oxygen levels. she was taking a family member to Dr Pennington for an appointment and Dr Pennington pointed out that she was labored in her breathing. patient stated she felt fine but according to the patient her oxygen was 82% on room air adn Dr Pennington told her she either needed to come by car to the ER or she was calling an ambulance. she came POV. History of Present Illness HPI narrative: Isaura Mirza is a 64y female with a history of COPD not on oxygen, tobacco use who presents to the emergency department for complaints of shortness of breath and cough. Patient states that this morning she was feeling well but dropped her mom off at custodial and Dr. Pennington noticed that she was working harder to breathe. Patient does state that she has had a mildly productive cough as well. She overall states that she does feel slightly short of breath but denies any chest pain. She tried an albuterol inhaler after being told that she was wheezing but did not have significant proven. Her SpO2 was in the low 80s at that time. She states that she recently finished a course of steroids. She denies any history of blood clots and states that she intermittently has swelling in both of her legs and her right leg seems mildly swollen at this time. Related Data Previous Rx's ?Medication ?Instructions ?Recorded citalopram 40 mg tablet See Rx Instructions .Route 0 09/20/24 .COMPLEX #90 tabs atorvastatin 80 mg tablet (Lipitor) 80 mg PO DAILY #90 tabs 09/27/24 albuterol sulfate 90 mcg/actuation 2 puff inhalation Q 6H PRN 10/25/24 aerosol inhaler shortness of breath or wheez ing #8.5 grams omeprazole 20 mg capsule,delayed 20 mg PO DAILY #90 ca ps 10/25/24 release ketorolac 10 mg tablet 10 mg PO Q8H PRN pain 5 days #20 11/29/24 tabs methocarbamol 1,000 mg tablet 1,000 mg PO TID 14 days #42 tabs 11/29/24 diazepam 5 mg tablet 5 mg PO BID PRN anxiety #60 tabs 12/27/24 ondansetron 4 mg disintegrating See Rx Instructions .R oute 12/27/24 tablet .COMPLEX #20 tabs oxycodone-acetaminophen 10 mg-325 1 tab PO Q6H PRN penny n #120 tabs 12/27/24 mg tablet (Percocet) prednisone 10 mg tablet 10 mg PO DIRECTED #32 tab s 12/27/24 doxycycline hyclate 100 mg tablet 100 mg PO BID 7 days #14 tabs 01/16/25 fluticasone 100 mcg-salmeterol 50 1 inh inhalation MAYO LY #60 ea 01/16/25 mcg/dose blistr powdr for inhalation (Advair Diskus) prednisone 20 mg tablet 20 mg PO DAILY 5 days #5 tab s 01/16/25 Allergies Allergy/AdvReac Type Severity Reaction Status Date / Time sulfamethoxazole (From Allergy Mild Hives Verified 12/27/24 13:10 BACTRIM) trimethoprim (From BACTRIM) Allergy Mild Hives Verified 12/27/24 13:10 terbinafine Allergy Redness of Verified 12/27/24 13:10 Skin PFSH PFSH Disclaimer: The information contained in this section may have been updated after the patient was seen, as this information can be updated by other users. Medical History History of MRSA infection HTN (hypertension) COPD (chronic obstructive pulmonary disease) Surgical History No history of previous surgery Family History Other Family history of cancer Family history of diabetes mellitus Family history of heart disease Social History Smoking Status: Current every day smoker tobacco type: cigarettes packs per day: 1 alcohol intake: never counseling provided: none substance use type: former substance user and marijuana current occupational status: retired and other Travel in the last 8 weeks?: None household members: spouse housing: house number of children: 1 Have you lived/traveled outside US in past 30 days?: No Contact w/someone who lives/traveled outside US past 30 days?: No Exposure to someone with infectious disease in past 14 days?: No Do you have a fever (greater than 100.4 F or 38 C)?: No Have you tested positive for COVID-19?: No Exposed to someone with COVID-19 in past 14 days?: No Do you have a sore throat?: No Do you have a cough?: No Do you have any weakness?: No Do you have any diarrhea?: No Are you experiencing any unusual bleeding?: No Do you have any muscle aches/pain?: No Do you have any abdominal pain?: No Are you experiencing loss of taste or smell?: No Other Medical History Have you received the Flu Vaccine for this season: Yes Have you received the Pneumonia Vaccine: Yes ROS Obtained: Yes Systems reviewed as appropriate & no additional complaints except as documented Physical Exam General General appearance: alert and in no apparent distress Head Head exam: atraumatic Eye Eye exam: Present normal appearance ENT ENT exam: Present normal external ear exam Neck Neck exam: Present full ROM Chest Chest inspection: Present symmetric chest wall rise Respiratory Respiratory exam: Present normal lung sounds bilaterally and wheezes (mild end expiratory wheezing); Absent respiratory distress Cardiovascular Cardiovascular exam: Present normal rhythm and tachycardia Abdominal Exam Abdominal exam: Present soft; Absent tenderness or guarding Extremities Exam Extremities exam: Present normal inspection and edema (trace, non-pitting edema to the distal right lower extremity) Back Exam Back exam: Present normal inspection Neurological Exam Neurological exam: Present alert and oriented X3 Psychiatric Psychiatric exam: Present normal affect Skin Skin exam: Present warm and dry HEART Score HEART Score HEART Score assessment performed?: Yes HEART Score: 3 Procedures Limited Ultrasound Indication:: Indication: Limited compression ultrasonography of the right lower extremity was performed to evaluate for non-compressibility of the deep veins in the patient. The ultrasound was performed with the following indications, as noted in the H&P: Right leg swelling Identified structures: Right common femoral vein, femoral vein, popliteal vein were examined. Findings: Lower Extremity: Right CFV: Good compressibility Right FV: Good compressibility Right Popliteal vein: Good compressibility Impression: Normal DVT ultrasound Images were saved to permanent archive The study was technically adequate CPT: 03249-12-SG [id number] (complete bilateral study) This study was performed by me, David Hernadez MD, and I personally interpreted all images/videos. Based on my clinical judgement, these images were adequate and did not necessitate further imaging. Critical Care Critical Care Time Critical Care Time: No Medical Decision Making Kulwant Inquiry Pt receiving controlled substance: No Vital Signs Vital Signs: 01/16/25 15:59 01/16/25 16:38 01/16/25 16:45 Temperature 98.2 F Temperature Source Oral Pulse Rate 101 H Pulse Rate [Right Radial] 106 H Respiratory Rate 20 21 Blood Pressure 142/85 H Blood Pressure [Right Arm] 152/96 H Blood Pressure Mean 90 Blood Pressure Mean [Right Arm] 114 Blood Pressure Source Blood Pressure Source [Right Arm] Automatic Cuff Blood Pressure Position Blood Pressure Position [Right Arm] Sitting 02 Sat by Pulse Oximetry 84 L 95 95 Oxygen Delivery Method Room Air Nasal Cannula Nasal Cannula Oxygen Flow Rate (LPM) 3 3 01/16/25 17:00 01/16/25 17:03 01/16/25 17:12 Temperature Temperature Source Pulse Rate 98 H 97 H 98 H Pulse Rate [Right Radial] Respiratory Rate 21 17 24 Blood Pressure 112/81 132/86 132/84 Blood Pressure [Right Arm] Blood Pressure Mean 88 95 104 Blood Pressure Mean [Right Arm] Blood Pressure Source Blood Pressure Source [Right Arm] Blood Pressure Position Blood Pressure Position [Right Arm] 02 Sat by Pulse Oximetry 96 96 99 Oxygen Delivery Method Nasal Cannula Nasal Cannula Nasal Cannula Oxygen Flow Rate (LPM) 3 3 3 01/16/25 17:51 01/16/25 17:54 01/16/25 17:57 Temperature Temperature Source Pulse Rate 99 H 98 H 99 H Pulse Rate [Right Radial] Respiratory Rate 21 20 21 Blood Pressure 134/87 145/90 H 134/93 H Blood Pressure [Right Arm] Blood Pressure Mean Blood Pressure Mean [Right Arm] Blood Pressure Source Blood Pressure Source [Right Arm] Blood Pressure Position Blood Pressure Position [Right Arm] 02 Sat by Pulse Oximetry 96 96 96 Oxygen Delivery Method Nasal Cannula Nasal Cannula Nasal Cannula Oxygen Flow Rate (LPM) 3 3 3 01/16/25 18:00 01/16/25 18:03 01/16/25 19:00 Temperature Temperature Source Pulse Rate 99 H 100 H 92 H Pulse Rate [Right Radial] Respiratory Rate 17 24 Blood Pressure 133/96 H 121/93 H Blood Pressure [Right Arm] Blood Pressure Mean Blood Pressure Mean [Right Arm] Blood Pressure Source Blood Pressure Source [Right Arm] Blood Pressure Position Blood Pressure Position [Right Arm] 02 Sat by Pulse Oximetry 96 95 92 L Oxygen Delivery Method Nasal Cannula Nasal Cannula Oxygen Flow Rate (LPM) 3 3 01/16/25 19:08 01/16/25 19:08 01/16/25 19:13 Temperature Temperature Source Pulse Rate 69 Pulse Rate [Right Radial] Respiratory Rate Blood Pressure 94/77 L 121/73 Blood Pressure [Right Arm] Blood Pressure Mean 81 82 Blood Pressure Mean [Right Arm] Blood Pressure Source Blood Pressure Source [Right Arm] Blood Pressure Position Blood Pressure Position [Right Arm] 02 Sat by Pulse Oximetry 94 L Oxygen Delivery Method Oxygen Flow Rate (LPM) 01/16/25 19:13 01/16/25 19:15 01/16/25 19:15 Temperature Temperature Source Pulse Rate 92 H 94 H Pulse Rate [Right Radial] Respiratory Rate Blood Pressure 113/67 Blood Pressure [Right Arm] Blood Pressure Mean 87 Blood Pressure Mean [Right Arm] Blood Pressure Source Blood Pressure Source [Right Arm] Blood Pressure Position Blood Pressure Position [Right Arm] 02 Sat by Pulse Oximetry 92 L 89 L Oxygen Delivery Method Oxygen Flow Rate (LPM) 01/16/25 19:55 01/16/25 20:07 Temperature 98.2 F 97.8 F Temperature Source Oral Pulse Rate 96 H 88 Pulse Rate [Right Radial] Respiratory Rate 20 16 Blood Pressure 127/81 111/94 H Blood Pressure [Right Arm] Blood Pressure Mean Blood Pressure Mean [Right Arm] Blood Pressure Source Automatic Cuff Blood Pressure Source [Right Arm] Blood Pressure Position Sitting Blood Pressure Position [Right Arm] 02 Sat by Pulse Oximetry Oxygen Delivery Method Nasal Cannula Nasal Cannula Oxygen Flow Rate (LPM) 3 3 Lab Data Labs: Lab Results 01/16/25 16:31: WBC 5.4, RBC 4.27, Hgb 12.8, Hct 40.7, MCV 95.3, MCH 30.0, MCHC 31.4 L, RDW 15.2, Plt Count 201, MPV 9.2, Neut % (Auto) 60.6, Lymph % (Auto) 25.6, Floyd % (Auto) 10.7 H, Eos % (Auto) 2.2, Baso % (Auto) 0.7, Neut # (Auto) 3.2, Lymph # (Auto) 1.4, Floyd # (Auto) 0.6, Eos # (Auto) 0.1, Baso # (Auto) 0.0, D-Dimer 4.34 H, VBG pH 7.31, VBG pCO2 57.4 H, VBG pO2 29.6, VBG HCO3 28.0, VBG Total CO2 29.8 H, VBG O2 Saturation 54.9, VBG Base Excess 1.7, VBG Lactic Acid 1.1, Sodium 134 L, Potassium 3.8, Chloride 97 L, Carbon Dioxide 32 H, Anion Gap 8.8, BUN 10, Creatinine 0.70, Estimated Creat Clear 57, Estimated GFR 84, Est GFR ( Amer) 101, Glucose 165 H, Calcium 9.2, Total Bilirubin 0.6, AST 26, ALT 17, Alkaline Phosphatase 102, Troponin I < 0.01, NT-Pro-B Natriuret Pep < 20.0, Total Protein 7.3, Albumin 4.0, Globulin 3.3 H, Albumin/Globulin Ratio 1.2, HCV Ab KINJAL w/Rflx PCR Qn Negative, HIV Ag/Ab Combo Qual Negative 01/16/25 16:31 01/16/25 16:31 Response Orders (Tests/Meds): ED MEDICATIONS Discontinued Medications Generic Name Dose Route Start Last Admin Trade Name Freq PRN Reason Stop Dose Admin Albuterol/Ipratropium 3 ml 01/16/25 16:42 01/16/25 16:55 Ipratropium/Albuterol 3 Ml Neb IH 01/16/25 16:43 3 ml ONCE ONE Administration Doxycycline Hyclate 100 mg 01/16/25 18:52 01/16/25 19:11 Doxycycline Hycl 100 Mg Tablet PO 01/16/25 18:53 100 mg ONCE ONE Administration Magnesium Sulfate 2 gm in 50 mls @ 50 mls/hr 01/16/25 16:42 01/16/25 18:01 Magnesium Sulfate 2gm/50ml Premix IV 01/16/25 17:41 Infused ONCE ONE Infusion Iopamidol 70 ml 01/16/25 17:50 01/16/25 17:52 Iopamidol-370 (76%);100ml Bottle IV 01/16/25 17:51 70 ml ONCE ONE Administration Methylprednisolone Sodium Succinate 80 mg 01/16/25 16:42 01/16/25 16:56 Methylprednisolone Sod Succ 125mg Vial IV 01/16/25 16:43 80 mg ONCE ONE Administration Sodium Chloride 10 ml 01/16/25 17:50 01/16/25 17:52 Sodium Chloride 0.9% 10ml Syr (Rad Only) IV 01/16/25 17:51 10 ml ONCE ONE Administration Sodium Chloride 50 ml 01/16/25 17:50 01/16/25 17:52 0.9 % Sodium Chloride 50 Ml Vial IV 01/16/25 17:51 50 ml ONCE ONE Administration ORDERS Category Date Time Status CT angio chest PE protocol Stat Cat Scan 01/16/25 17:13 Completed POCUS Point of Care (ER Only) Stat Exams 01/16/25 18:05 Completed BNP [NT Pro Brain Natriuretic Pep.] Stat Lab 01/16/25 16:31 Completed CBC w/Auto Diff [Complete Blood Count Auto Diff] Stat Lab 01/16/25 16:31 Completed CMP [Comprehensive Metabolic Panel] Stat Lab 01/16/25 16:31 Completed D-Dimer Stat Lab 01/16/25 16:31 Completed HIV Combo Stat Lab 01/16/25 16:31 Completed Hepatitis C Ab Qual. W/ RFX Stat Lab 01/16/25 16:31 Completed Troponin I Stat Lab 01/16/25 16:31 Completed VBG [Venous Blood Gas] Stat RT 01/16/25 16:31 Completed ECG Data Tracing #1: Attestation: I reviewed this ECG and interpreted as documented below: ECG Narrative: Normal sinus rhythm. No ST elevation or depression. QTc normal at 396 MDM Narrative Medical Decision Narrative: Isaura Mirza is a 64y female with a history of COPD not on oxygen, tobacco use who presents to the emergency department for complaints of shortness of breath and cough. Patient states that this morning she was feeling well but dropped her mom off at custodial and Dr. Pennington noticed that she was working harder to breathe. Patient does state that she has had a mildly productive cough as well. She overall states that she does feel slightly short of breath but denies any chest pain. She tried an albuterol inhaler after being told that she was wheezing but did not have significant proven. Her SpO2 was in the low 80s at that time. She states that she recently finished a course of steroids. She denies any history of blood clots and states that she intermittently has swelling in both of her legs and her right leg seems mildly swollen at this time. On arrival, patient is initially hypertensive with blood pressure 152/96, tachycardic with a heart rate of 106, afebrile, oxygen saturation 84% on room air was put on 3 L with improvement to 95% SpO2. Physical exam, stated above, revealed nontoxic-appearing female in no significant respiratory distress. She is speaking in full sentences. She has some mild end expiratory wheezing bilaterally but no cardiac murmurs or rubs. Abdomen is soft, nontender nondistended. She has some trace nonpitting edema to her distal right lower extremity but pulses are present and strong. Differential diagnosis includes, but is not limited to: COPD exacerbation, pneumonia, pulmonary embolism, ACS, pericarditis, viral respiratory illness, among others. The most morbid conditions were considered and workup was based on these. Initial workup in the Emergency Department included: EKG, CBC with differential, CMP, VBG, lactic acid, troponin, BNP, two-view chest x-ray. Patient was treated with a DuoNeb treatment, 2 g IV magnesium sulfate, and 80 mg of methylprednisolone. EKG without evidence of ischemia. See interpretation above. Prior to obtaining chest x-ray imaging, patient's D-dimer resulted and was significantly elevated at 4.34. Patient's chest x-ray was canceled and CT pulmonary embolism was ordered. I discussed this finding with her and concern for PE and she is in agreement to proceed with CT imaging at this time. VBG showed normal pH at 7.31, pCO2 mildly elevated at 57.4. Bicarb attempting to compensate at 29.8. Lactic acid normal at 1.1. Mild hyponatremia at 134 and mild hypochloremia at 97 but nonactionable. No GAYATRI. Glucose normal at 165. Troponin less than 0.01. NT proBNP normal at less than 20. Patient's white blood cell count is normal at 5.4. Normal hemoglobin and hematocrit. Platelets normal at 201. CT imaging interpreted by me personally. No evidence of pulmonary embolism or ground glass opacities to suggest pneumonia. Lung nodules as described previously. See radiology report for details. Wound care right lower extremity DVT ultrasound was performed by me personally. No evidence of DVT. See procedure note for details. Patient was taken off of oxygen and ambulated here in the emergency department and her oxygen saturation dropped to 81%. She is continuing to require 3 L nasal cannula to maintain oxygen saturation between 92-94%. Subjectively, patient states that she feels well and has improved since her breathing treatment and medications in the emergency department today. Given her continued hypoxia I do feel that she had minimal needs at home oxygen therapy for her COPD. I did offer the patient admission for continued management of her COPD exacerbation, however she would like to go home. Given this, will arrange for home oxygen therapy before she leaves the emergency department. Will also give a dose of doxycycline for COPD exacerbation. Will also discharge patient with prescription for prednisone and doxycycline. I did encourage her to follow-up closely with Dr. Whitlock with the pulmonary team due to her new oxygen requirement and lung nodule. All questions were answered. Return precautions were given. She demonstrated understanding and was in agreement with this plan. She was then discharged from the ED in stable condition.
[2025-01-16 16:51] LABS: Lactate Venous 1.1 mmol/L (0.4-2.0); VBG HCO3 28.0 mmol/L (23-30); VBG PH 7.31 mmol/L (7.31-7.41); VBG PO2 29.6 mmol/L (28-40)
[2025-01-16] MEDS: IPRATROPIUM/ALBUTEROL 3 ML NEB IH (16:55)
[2025-01-16] MEDS: MAGNESIUM SULFATE IN WATER 2 GM/50 ML PIGGYBACK IV (16:55)
[2025-01-16 16:56] LABS: VBG PCO2 57.4 mmol/L (35-51)
[2025-01-16] MEDS: METHYLPREDNISOLONE SOD SUCC 125MG VIAL 80 MG IV (16:56)
[2025-01-16 16:58] LABS: Hematocrit 40.7 % (37.0-47.0); Hemoglobin 12.8 g/dL (12.2-16.2); Immature Granulocytes % 0.2 %; Mean Corpuscular HGB Conc 31.4 g/dL (31.8-35.4); Mean Corpuscular Hemoglobin 30.0 pg (27.0-31.2); Mean Corpuscular Volume 95.3 fl (81-99); Nucleated Red Blood Cells % 0 %; Platelet Count 201 K/mm3 (142-424); Red Blood Count 4.27 M/mm3 (4.20-5.40); Red Cell Distribution Width-SD 53.1 fL; White Blood Count 5.4 K/mm3 (4.8-10.8)
[2025-01-16 17:05] LABS: Alanine Aminotransferase 17 U/L (12-78); Albumin Level 4.0 g/dl (3.5-5.0); Albumin/Globulin Ratio 1.2 (1.1-1.8); Alkaline Phosphatase 102 U/L (38-126); Anion Gap 8.8 mEq/L (5-15); Aspartate Amino Transferase 26 U/L (14-36); Bilirubin,Total 0.6 mg/dl (0.2-1.3); Blood Urea Nitrogen 10 mg/dl (7-17); Calcium 9.2 mg/dl (8.4-10.2); Carbon Dioxide 32 mmol/L (22.0-30.0); Chloride 97 mmol/L (98-107); Creatinine Clearance Estimated 57 mL/min (50-200); Creatinine,Serum 0.70 mg/dl (0.52-1.04); Estimated Glomerular Filt Rate 84 ml/min (>60); GFR (African American) 101 ML/MIN (>60); Globulin 3.3 g/dL (1.3-3.2); Glucose 165 mg/dl (74-100); Potassium 3.8 mmoL/L (3.5-5.1); Sodium 134 mmol/L (136-145); Total Protein,Serum 7.3 g/dl (6.3-8.2)
[2025-01-16 17:08] LABS: D-Dimer 4.34 ug/mL (0.0-0.5)
--- NOTE | 2025-01-16 17:13 | CT_ITS ---
PROCEDURE INFORMATION: Exam: CTA Chest With Contrast Exam date and time: 01/16/2025 5:43 PM Age: 64 years old Clinical indication: Abnormal findings; Abnormal diagnostic tests; Elevated d-dimer; Additional info: Shortness of breath, elevated d-dimer TECHNIQUE: Imaging protocol: Computed tomographic angiography of the chest with contrast. Exam focused on the arteries. 3D rendering (Not supervised by radiologist): MIP and/or 3D reconstructed images were created by the technologist. Radiation optimization: All CT scans at this facility use at least one of these dose optimization techniques: automated exposure control; mA and/or kV adjustment per patient size (includes targeted exams where dose is matched to clinical indication); or iterative reconstruction. Contrast material: ISOVUE 370; Contrast volume: 70 ml; Contrast route: INTRAVENOUS (IV); COMPARISON: CT ANGIO CHEST PE PROTOCOL 11/19/2023 5:01 PM FINDINGS: Pulmonary arteries: No CT angiography evidence of pulmonary embolism. Aorta: There is moderate calcific atherosclerotic disease of the thoracic aorta without aneurysmal dilatation. Trachea: Air-fluid level at the mid trachea compatible with aspirated material. Lungs: Right upper lobe 6.4 mm nodule, axial image 34. There are moderate centrilobular emphysematous changes of the lungs with an apical gradient. Pleural spaces: Unremarkable. No pneumothorax. No pleural effusion. Heart: Unremarkable. No cardiomegaly. No pericardial effusion. Coronary arteries: Mild three-vessel calcific atherosclerotic disease of the coronary arteries is present. Lymph nodes: Unremarkable. No enlarged lymph nodes. Spleen: Multiple benign-appearing calcific densities of the spleen. Bones/joints: Unremarkable. No acute fracture. Soft tissues: Unremarkable. Other findings: Motion artifacts slightly limits sensitivity and specificity of the examination. IMPRESSION: 1. Air-fluid level at the mid trachea compatible with aspirated material. 2. No CT angiography evidence of pulmonary embolism. 3. Solitary pulmonary nodule measuring 6.4 mm. For patients at low risk (minimal or absent history of smoking and of other known risk factors), recommend CT Chest at 6-12 months, then consider CT Chest at 18-24 months. For patients at high risk (history of smoking or of other known risk factors), recommend CT Chest at 6-12 months, then CT Chest at 18-24 months. (Reference: Louise) 4. Motion artifacts slightly limits sensitivity and specificity of the examination. COMMENTS: The presence of pulmonary emphysema on CT is an independent risk factor for lung cancer. In the absence of a history or active diagnosis of lung cancer, it is recommended that this patient with emphysema be evaluated for enrollment in a low dose CT lung cancer screening program. REFERENCES: Louise Lowe et al. Guidelines for Management of Incidental Pulmonary Nodules Detected on CT Images: From the Fleischner Society 2017. Radiology. 2017;284(1):228-243.
[2025-01-16 17:17] LABS: NT Pro Brain Natriuretic Pep. < 20.0 pg/mL (0-125)
[2025-01-16 17:22] LABS: Troponin I < 0.01 ng/ml (0.00-0.034)
--- NOTE | 2025-01-16 17:32 | ECG_ITS ---
APPROVED REPORT Exam: Resting ECG HR:93 bpm ECG Measurements Heart Rate 93 AXES WA 180 P 78 QRSd 76 QRS 76 QT 345 T 83 QTc 396 Conclusion SINUS RHYTHM NORMAL ECG UNCONFIRMED REPORT Normal sinus rhythm.no ST elevation or depression. QTc normal at 396 Electronically signed by : HARSHIL BRODY, 01/17/2025 21:00:28
[2025-01-16] MEDS: IOPAMIDOL-370 (76%);100ML BOTTLE 70 ML IV (17:52)
[2025-01-16] MEDS: 0.9 % SODIUM CHLORIDE 50 ML VIAL IV (17:52)
[2025-01-16] MEDS: SODIUM CHLORIDE 0.9% 10ML SYR (RAD ONLY) 10 ML IV (17:52)
[2025-01-16 17:53] LABS: Hepatitis C Ab Qual. W/ RFX NEGATIVE (Negative)
--- NOTE | 2025-01-16 18:52 | PC.NURSE ---
patient O2 was 81% when ambulating to the bathroom without supplemental O2.
--- NOTE | 2025-01-16 18:58 | PC.NURSE ---
calling jose at this time
--- NOTE | 2025-01-16 19:00 | PC.NURSE ---
called [facility]rels and left message at this time
--- NOTE | 2025-01-16 19:10 | PC.NURSE ---
Letitia Anglin spoke to ang about getting at home oxygen
[2025-01-16] MEDS: DOXYCYCLINE HYCL 100 MG TABLET PO (19:11)
--- NOTE | 2025-01-16 19:39 | PC.NURSE ---
[employer] at bedside; appropriate paperwork handed over
== END 2025-01-16 20:09 | disposition home or self-care (01) ==
PROVIDERS: Emergency Provider Student in an Organized Health Care Education/Training Program; PCP Internal Medicine
DX: R09.02 Hypoxemia (principal); J44.1 Chronic obstructive pulmonary disease with (acute) exacerbation; F17.210 Nicotine dependence, cigarettes, uncomplicated
CPT/HCPCS: 71275; 80053; 82803; 83880; 84484; 85025; 85378; 86803; 87389; 93005; 96365; 96375; 99285; J2919; J3475; Q9967

== ENCOUNTER 2025-03-11 15:07 | Outpatient (CLI) | payer MEDICARE, SELFPAY ==
--- OUTSIDE RECORDS SUMMARY | 2025-03-11 15:10 | XMS_ITS | Clinical Summary ---
Author Organization Healthcare Address [address] [place] [address] Care Team Providers Care Customer Services Manager Name Role Phone Cedrick Almaguer MD Primary Care Provider [phone] Allergies Active Allergy Reactions Criticality Noted Date [...] (2 - Td or Tdap) 08/20/2020 08/20/2010 [id number] Vaccine (5 - season) 2024 10/30/2021, 02/08/2021, 08/02/2020, Additional history exists [facility]-Influenza Vaccine (#1) 11/12/202402/27, 12/31/2012, 01/31/2012, Additional history exists [facility]-RSV Vaccine: 60+ Years or (1 - 1-dose 75+ series) 2033 [facility]-Pneumococcal Vaccine: 50+ Years Completed 04/11/2020, 02/27/2019, 01/31/2012 [facility]-Zoster Vaccines Completed 09/26/2020, 04/11/2020, 03/02/2013 [facility]-Hepatitis C Screening Completed 11/20/2023 HPV Vaccines (No Doses Required) Completed [facility]-HIB Vaccines Aged Out No longer e [...] Antibody Negative Negative 11/20/2023 2:12 AM EDT [facility] Blood Venous blood specimen / Unknown Venipuncture / Unknown 11/20/2023 1:15 AM EDT 11/20/2023 1:32 AM EDT Philipp Del Toro MD LAB BLOOD ORDERABLES Final Re sult [facility] [address] [place] [address] from Last 3 Months or Most Recently Relevant to Health Maintenance Insurance [employer] Advance Directives * Full Code (Latest Code Status on File) Date Activated Date Inactivated Comments 11/20/2023 5:14 AM 11/21/2023 12:24 PM Question Answer Comments Patient has decision-making capacity? Yes Care Teams Customer Services Manager Relationship Specialty Start Date End Date Cedrick Almaguer MD [address] [facility] [address] [place] [address] PCP - General 07/25/20
--- OUTSIDE RECORDS SUMMARY | 2025-03-11 15:10 | XMS_ITS | Clinical Summary ---
[facility] Address [address] [place] [address] Care Team Providers Care Aged Or Disabled Care Worker Name Role Phone Cedrick Almaguer MD Primary Care Provider [phone] Allergies Active Allergy Reactions Criticality Noted Date [...] 2024 HEPATITIS C SCREENING Completed 11/20/2023 Insurance [facility] Care Teams Aged Or Disabled Care Worker Relationship Specialty Start Date End Date Cedrick Almaguer MD [address] [place] [facility] [address] [place] [address] PCP - General Internal Medicine 01/15/19
--- OUTSIDE RECORDS SUMMARY | 2025-03-11 15:10 | XMS_ITS | Clinical Summary ---
Author Organization [facility] Address [address] [place] [address] Phone Care Team Providers Care Clubhouse Manager Name Role Phone Unavailable Primary Care Provider [...] THE ELISEO ASHBY MD [facility] DOCTOR WHERE PT DISMISSED FROM THEIR [...] Most Recently Relevant to Health Maintenance Insurance [facility] POS [employer] POS
[2025-03-11 15:26] LABS: ABG HCO3 34.6 mmhg (22.0-26.0); ABG PH 7.41 mmol/L (7.35-7.45); ABG TCO2 36.3 mmhg (23-27)
[2025-03-11 15:37] LABS: ABG PCO2 56.2 mmhg (35.0-45.0); Source Left Radial
[2025-03-11 15:38] LABS: ABG PO2 37.7 mmhg (80-100)
--- NOTE | 2025-03-11 15:42 | PC.NURSE ---
Pt's brought oxygen from car. Pt placed on 3L, recovered to 90%. Encouraged pt to wear oxygen at all times.
--- NOTE | 2025-03-11 15:44 | XR_ITS ---
FINAL REPORT CLINICAL HISTORY: Shortness of breath COMPARISON: 10/26/[address] chest 01/16/2025 FINDINGS: PA and lateral views of the chest were obtained. The cardiac and mediastinal silhouettes are within normal limits. In the left upper lobe is a masslike opacity with central lucency and air-fluid level measuring 45 mm. This was not present on CT chest from January 2025 and is favored to represent cavitary pneumonia. Neoplasm is much less likely given development in a relatively short time. The lungs are otherwise clear. There is no pleural effusion or pneumothorax. No acute osseous abnormality is identified. IMPRESSION: Left upper lobe mass with air-fluid level. Given development since recent CT scan, favor infectious or inflammatory. Recommend follow-up to resolution. Reviewed, Interpreted and Dictated by Aidee Sebastian MD Transcribed by Trisha Aguilera Authenticated and [facility]
== END 2025-03-11 23:59 | disposition home or self-care (01) ==
LOC: RAD 15:08
PROVIDERS: PCP Internal Medicine; Visit Provider Internal Medicine Pulmonary Disease
DX: R06.02 Shortness of breath (principal); R91.8 Other nonspecific abnormal finding of lung field
CPT/HCPCS: 36600; 71046; 82803